=== PATIENT | female | born 1950 | race Caucasian/White ===

== ENCOUNTER → 2017-11-12 12:35 | Outpatient (CLI) | payer BC, SELFPAY ==
--- NOTE | 2017-11-12 12:39 | HPBI_ITS ---
MAMMOGRAPHY - BILATERAL SCREENING REASON FOR EXAM: Female, 67 years old. Routine annual screening examination. PERTINENT HISTORY: Aunt with breast cancer. TECHNIQUE: Digital bilateral breast kacey (3D mammographic acquisition) in the CC and MLO projections. 2-D mediolateral oblique (MLO) and craniocaudad (CC) views of both breasts were obtained. CAD: Full Field Digital Mammography with Computer Added Detection was performed. COMPARISON: Comparison is made with prior study dated September 29, 2016 and August 29, 2015. FINDINGS: Breast Composition: There are scattered areas of fibroglandular density. There are no dominant masses or suspicious calcifications. Stable benign appearing bilateral axillary lymph nodes. Stable 4 mm x 5 mm nodular density in the superior lateral portion of the left breast. This was demonstrated a small cyst on prior ultrasound. No other significant abnormalities are identified. There has been no significant change since the prior study. HPBI/SCREENING MAMM (CAD), BILAT IMPRESSION: Stable bilateral screening mammogram. Yearly follow-up mammogram recommended. (A) ASSESSMENT CATEGORY: BIRADS Category 2: Benign. A letter regarding these results will be sent to the patient by the facility within 30 days. Approximately 10% of breast cancers are not detected by mammography. A normal mammogram should not delay biopsy of a clinically suspicious abnormality. [id number] Electronically Signed: Calvin Khan MD at 15:41 EST Tel [phone], Service support ,
--- NOTE | 2017-11-12 12:39 | HPBD_ITS ---
STUDY: DUAL ENERGY X-RAY ABSORPTIOMETRY / DXA REASON FOR EXAM: Female, 67 years old. The patient is postmenopausal. No loss of height. TECHNIQUE: Bone Mineral Density (BMD) measurements of lumbar spine and bilateral hips were obtained. COMPARISON: Comparison is made with prior study dated September 20, 2013. FINDINGS: Lumbar Spine (L1-L4): g/cm2 (0.950) / T-score (-1.8) / Z-score (-0.2) Findings are suggestive of osteopenia with a moderate fracture risk. Left Femur Total: g/cm2 (0.817) / T-score (-1.5) / Z-score (-0.2) Left Femoral Neck: g/cm2 (0.839) / T-score (-1.4) / Z-score (0.2) Right Femur Total: g/cm2 (0.823) / T-score (-1.5) / Z-score (-0.1) Right Femoral Neck: g/cm2 (0.806) / T-score (-1.7) / Z-score (-0.1) The T-Scores on the most recent prior examination were: Lumbar Spine (L1-L4): There has been worsening of bone density since the previous examination. Left Femur Total: which represents a worsening of 4.2%. Right Femur Total: which represents a worsening of 1.6%. HPBD/Dexa Bone Density Study (HP) IMPRESSION: The patient is considered osteopenic as outlined below according to World Asa Organization (WHO) criteria with a moderate fracture risk. There has been worsening of bone density since the previous examination. Reference Information: The T-score is the number of standard deviations above or below the standard which is normal for young adults at their peak bone mineral density. The World Health Organization (WHO) interprets the T-scores as follows: Above -1 Normal bone density Between -1 and -2.5 Osteopenia Equal to / or below -2.5 Osteoporosis As a practical clinical guideline, osteopenia may be graded as follows: Mild -1 through -1.5 Moderate -1.6 through -2.0 Severe -2.1 through -2.4 The Z-score is the number of standard deviations above or below age-matched controls. A Z-score of less than -1.5 would be considered abnormal. References: 1. NIH Osteoporosis and Related Bone Diseases http://www.osteo.org 2. International Society for Clinical Densitometry http://www.iscd.org 3. National Osteoporosis Foundation http://www.nof.org Electronically Signed: Calvin Khan MD at 14:00 EST Tel [phone], Service support ,
== END ==
PROVIDERS: Family Provider Family Medicine; PCP Family Medicine; Visit Provider Family Medicine
DX: Z12.31 Encounter for screening mammogram for malignant neoplasm of breast (principal); M81.0 Age-related osteoporosis without current pathological fracture
CPT/HCPCS: 77063; 77067; 77080

== ENCOUNTER → 2018-09-20 07:55 | Outpatient (CLI) | payer BC, SELFPAY ==
--- NOTE | 2018-09-20 07:57 | US_ITS ---
STUDY: ULTRASOUND OF THE FEMALE PELVIS - COMPLETE REASON FOR EXAM: Female, 67 years old. Postmenopausal bleeding. LMP: Unknown. TECHNIQUE: Transabdominal and Transvaginal. Despite a distended urinary bladder, detail was very limited on transabdominal imaging, so additional endovaginal scanning was employed. TECHNICAL QUALITY: Adequate. COMPARISON: Endovaginal pelvic sonogram August 26, 2013. FINDINGS: The uterus is anteverted and is in a midline position. The uterus measures 5.6 x 3.8 x 2.8 cm. Normal uterine cervix. The endometrium measures 2.0 mm in thickness, and is minimally fluid distended to an overall AP diameter of 4.7 mm. 8 x 5 x 3 mm hypoechoic area seen in the myometrium just left of the endometrial stripe, etiology and significance uncertain. There is no demonstrated endometrial mass. There is scattered calcifications in the myometrium, but no demonstrated myometrial mass. I.U.D. - The patient does not have an I.U.D. The right ovary is non-visualized. There is no visualized right adnexal mass or complex lesion. There is normal arterial and normal venous vascularity. The left ovary is non-visualized. There is no visualized left adnexal mass or complex lesion. There is normal arterial and normal venous vascularity. There is no fluid in the cul-de-sac. The pre void volume of the bladder was 571 ml. Polycystic ovary disease: No. US/Pelvic (Non ) IMPRESSION: 1. Age-appropriate uterine and endometrial atrophy. No demonstrated fibroid, but a small fluid-filled structure of indeterminate etiology and significance is seen along the left margin of the minimally fluid-filled endometrial cavity. This could reflect a prominent glandular structure or other focal outpouching of the endometrium, unchanged from previous exam. 2. The ovaries are not visualized. Electronically Signed: Del Kasper MD at 19:30 EST , Service support ,
--- NOTE | 2018-09-20 08:13 | US_ITS ---
STUDY: ULTRASOUND OF THE FEMALE PELVIS - COMPLETE REASON FOR EXAM: Female, 67 years old. Postmenopausal bleeding. LMP: Unknown. TECHNIQUE: Transabdominal and Transvaginal. Despite a distended urinary bladder, detail was very limited on transabdominal imaging, so additional endovaginal scanning was employed. TECHNICAL QUALITY: Adequate. COMPARISON: Endovaginal pelvic sonogram August 26, 2013. FINDINGS: The uterus is anteverted and is in a midline position. The uterus measures 5.6 x 3.8 x 2.8 cm. Normal uterine cervix. The endometrium measures 2.0 mm in thickness, and is minimally fluid distended to an overall AP diameter of 4.7 mm. 8 x 5 x 3 mm hypoechoic area seen in the myometrium just left of the endometrial stripe, etiology and significance uncertain. There is no demonstrated endometrial mass. There is scattered calcifications in the myometrium, but no demonstrated myometrial mass. I.U.D. - The patient does not have an I.U.D. The right ovary is non-visualized. There is no visualized right adnexal mass or complex lesion. There is normal arterial and normal venous vascularity. The left ovary is non-visualized. There is no visualized left adnexal mass or complex lesion. There is normal arterial and normal venous vascularity. There is no fluid in the cul-de-sac. The pre void volume of the bladder was 571 ml. Polycystic ovary disease: No. US/Transvaginal Non- IMPRESSION: 1. Age-appropriate uterine and endometrial atrophy. No demonstrated fibroid, but a small fluid-filled structure of indeterminate etiology and significance is seen along the left margin of the minimally fluid-filled endometrial cavity. This could reflect a prominent glandular structure or other focal outpouching of the endometrium, unchanged from previous exam. 2. The ovaries are not visualized. Electronically Signed: Del Kasper MD at 19:30 EST , Service support ,
--- OUTSIDE RECORDS SUMMARY | 2018-11-13 07:32 | XMS RPT_ITS ---
:1950 Author Organization [facility] Care Team Providers Name Role Phone Lena Vogta Attending Unavailable Malys, Sandi Primary Care Unavailable Malys, Sandi Attending Unavailable Malys, Sandi Referring Unavailable Malys, Sandi Primary Care Unavailable Rox Novak Attending Unavailable Rox Novak Referring Unavailable Malys, Sandi Primary Care Unavailable PROBLEMS PROBLEMS DATE TYPE CONDITION / CODE ATTENDING STATUS SOURCE 10/08/2017 Unknown R53.83 - Other Malys, Sandi Active [place] fatigue / Community R53.83(ICD-10) Hospital Repository 10/08/2017 Unknown I10 - Essential Malys, Sandi Active [facility] (primary) Community hypertension / Hospital I10(ICD-10) Repository 10/08/2017 Unknown E78.5 - Malys, Sandi Active [facility] Hyperlipidemia, Community unspecified / Hospital E78.5(ICD-10) Repository 10/08/2017 Unknown Z00.00 - Encounter Sandi Vogt Active Sara for general adult [facility] examination Repository without abnormal findings / Z00.00(ICD-10) PROCEDURES PROCEDURES No Procedure Records FoundRESULTS RESULTS TRANSVAGINAL Observed: 09/20/2018 Status: F Source: [place] NON- 8:[address] [facility] REPOSITORY [facility] Imaging Services [address] [place] [address] Transvaginal Non- MR#: [id number] Acct: [id number] Name: ROLY ARCEO Rep #: [id number] : 1950 F 67 From: Lan Kasper MD PCP: Sandi Vogt DO Status: REG CLI Study: Transvaginal Non- Date of Exam: 09/20/18 Exam# [id number] Ordering Dr: Rox Novak MD STUDY: ULTRASOUND OF THE FEMALE PELVIS - COMPLETE REASON FOR EXAM: Female, 67 years old. Postmenopausal bleeding. LMP: Unknown. TECHNIQUE: Transabdominal and Transvaginal. Despite a distended urinary bladder, detail was very limited on transabdominal imaging, so additional endovaginal scanning was employed. TECHNICAL QUALITY: Adequate. COMPARISON: Endovaginal pelvic sonogram August 26, 2013. FINDINGS: The uterus is anteverted and is in a midline position. The uterus measures 5.6 x 3.8 x 2.8 cm. Normal uterine cervix. The endometrium measures 2.0 mm in thickness, and is minimally fluid distended to an overall AP diameter of 4.7 mm. 8 x 5 x 3 mm hypoechoic area seen in the myometrium just left of the endometrial stripe, etiology and significance uncertain. There is no demonstrated endometrial mass. There is scattered calcifications in the myometrium, but no demonstrated myometrial mass. I.U.D. - The patient does not have an I.U.D. The right ovary is non-visualized. There is no visualized right adnexal mass or complex lesion. There is normal arterial and normal venous vascularity. The left ovary is non-visualized. There is no visualized left adnexal mass or complex lesion. There is normal arterial and normal venous vascularity. There is no fluid in the cul-de-sac. The pre void volume of the bladder was 571 ml. Polycystic ovary disease: No. US/Transvaginal Non- IMPRESSION: 1. Age-appropriate uterine and endometrial atrophy. No demonstrated fibroid, but a small fluid-filled structure of indeterminate etiology and significance is seen along the left margin of the minimally fluid-filled endometrial cavity. This could reflect a prominent glandular structure or other focal outpouching of the endometrium, unchanged from previous exam. 2. The ovaries are not visualized. Electronically Signed: Del Kasper MD at 19:30 EST , Service support , CC: Rox Novak MD; Sandi Vogt DO Customer Experience Associate: Signed PELVIC (NON ) Observed: 09/20/2018 Status: F Source: [place] 7:58 AM [facility] REPOSITORY [facility] Imaging Services [address] [place] [address] Pelvic (Non ) MR#: [id number] Acct: [id number] Name: ROLY ARCEO Rep #: [id number] : 1950 F 67 From: Lan Kasper MD PCP: Sandi Vogt DO Status: REG CLI Study: Pelvic (Non ) Date of Exam: 09/20/18 Exam# [id number] Ordering Dr: Rox Novak MD STUDY: ULTRASOUND OF THE FEMALE PELVIS - COMPLETE REASON FOR EXAM: Female, 67 years old. Postmenopausal bleeding. LMP: Unknown. TECHNIQUE: Transabdominal and Transvaginal. Despite a distended urinary bladder, detail was very limited on transabdominal imaging, so additional endovaginal scanning was employed. TECHNICAL QUALITY: Adequate. COMPARISON: Endovaginal pelvic sonogram August 26, 2013. FINDINGS: The uterus is anteverted and is in a midline position. The uterus measures 5.6 x 3.8 x 2.8 cm. Normal uterine cervix. The endometrium measures 2.0 mm in thickness, and is minimally fluid distended to an overall AP diameter of 4.7 mm. 8 x 5 x 3 mm hypoechoic area seen in the myometrium just left of the endometrial stripe, etiology and significance uncertain. There is no demonstrated endometrial mass. There is scattered calcifications in the myometrium, but no demonstrated myometrial mass. I.U.D. - The patient does not have an I.U.D. The right ovary is non-visualized. There is no visualized right adnexal mass or complex lesion. There is normal arterial and normal venous vascularity. The left ovary is non-visualized. There is no visualized left adnexal mass or complex lesion. There is normal arterial and normal venous vascularity. There is no fluid in the cul-de-sac. The pre void volume of the bladder was 571 ml. Polycystic ovary disease: No. US/Pelvic (Non ) IMPRESSION: 1. Age-appropriate uterine and endometrial atrophy. No demonstrated fibroid, but a small fluid-filled structure of indeterminate etiology and significance is seen along the left margin of the minimally fluid-filled endometrial cavity. This could reflect a prominent glandular structure or other focal outpouching of the endometrium, unchanged from previous exam. 2. The ovaries are not visualized. Electronically Signed: Del Kasper MD at 19:30 EST , Service support , CC: Rox Novak MD; Sandi Vogt DO Customer Experience Associate: Signed DEXA BONE DENSITY Observed: 11/12/2017 Status: F Source: [place] STUDY () 12:39 PM [facility] REPOSITORY [facility] Imaging Services [address] [place] [address] Dexa Bone Density Study () MR#: [id number] Acct: [id number] Name: ROLY ARCEO Rep #: [id number] : 1950 F 67 From: Calvin Khan MD PCP: Sandi Vogt DO Status: REG CLI Study: Dexa Bone Density Study () Date of Exam: 11/12/17 Exam# [id number] Ordering Dr: Sandi Vogt DO STUDY: DUAL ENERGY X-RAY ABSORPTIOMETRY / DXA REASON FOR EXAM: Female, 67 years old. The patient is postmenopausal. No loss of height. TECHNIQUE: Bone Mineral Density (BMD) measurements of lumbar spine and bilateral hips were obtained. COMPARISON: Comparison is made with prior study dated September 20, 2013. FINDINGS: Lumbar Spine (L1-L4): g/cm2 (0.950) / T-score (-1.8) / Z-score (-0.2) Findings are suggestive of osteopenia with a moderate fracture risk. Left Femur Total: g/cm2 (0.817) / T-score (-1.5) / Z- score (-0.2) Left Femoral Neck: g/cm2 (0.839) / T-score (-1.4) / Z- score (0.2) Right Femur Total: g/cm2 (0.823) / T-score (-1.5) / Z- score (-0.1) Right Femoral Neck: g/cm2 (0.806) / T-score (-1.7) / Z-score (-0.1) The T-Scores on the most recent prior examination were: Lumbar Spine (L1-L4): There has been worsening of bone density since the previous examination. Left Femur Total: which represents a worsening of 4.2%. Right Femur Total: which represents a worsening of 1.6%. HPBD/Dexa Bone Density Study () IMPRESSION: The patient is considered osteopenic as outlined below according to World Asa Organization (WHO) criteria with a moderate fracture risk. There has been worsening of bone density since the previous examination. Reference Information: The T-score is the number of standard deviations above or below the standard which is normal for young adults at their peak bone mineral density. The World Health Organization (WHO) interprets the T-scores as follows: Above -1 Normal bone density Between -1 and -2.5 Osteopenia Equal to / or below -2.5 Osteoporosis As a practical clinical guideline, osteopenia may be graded as follows: Mild -1 through -1.5 Moderate -1.6 through -2.0 Severe -2.1 through -2.4 The Z-score is the number of standard deviations above or below age-matched controls. A Z-score of less than -1.5 would be considered abnormal. References: 1. NIH Osteoporosis and Related Bone Diseases http://www.osteo.org 2. International Society for Clinical Densitometry http://www.iscd.org 3. National Osteoporosis Foundation http://www.nof.org Electronically Signed: Calvin Khan MD at 14:00 EST Tel [phone], Service support , CC: Sandi Vogt DO Customer Experience Associate: Signed SCREENING MAMM (CAD), Observed: 11/12/2017 Status: F Source: [facility] 12:39 PM [facility] REPOSITORY [facility] Imaging Services [address] [place] [address] SCREENING MAMM (CAD), BILAT MR#: [id number] Acct: [id number] Name: ROLY ARCEO Rep #: [id number] : 1950 F 67 From: Calvin Khan MD PCP: Sandi Vogt DO Status: [facility] Study: SCREENING MAMM (CAD), BILAT Date of Exam: 11/12/17 Exam# [id number] Ordering Dr: Sandi Vogt DO MAMMOGRAPHY - BILATERAL SCREENING REASON FOR EXAM: Female, 67 years old. Routine annual screening examination. PERTINENT HISTORY: Aunt with breast cancer. TECHNIQUE: Digital bilateral breast kacey (3D mammographic acquisition) in the CC and MLO projections. 2-D mediolateral oblique (MLO) and craniocaudad (CC) views of both breasts were obtained. CAD: Full Field Digital Mammography with Computer Added Detection was performed. COMPARISON: Comparison is made with prior study dated September 29, 2016 and August 29, 2015. FINDINGS: Breast Composition: There are scattered areas of fibroglandular density. There are no dominant masses or suspicious calcifications. Stable benign appearing bilateral axillary lymph nodes. Stable 4 mm x 5 mm nodular density in the superior lateral portion of the left breast. This was demonstrated a small cyst on prior ultrasound. No other significant abnormalities are identified. There has been no significant change since the prior study. HPBI/SCREENING MAMM (CAD), BILAT IMPRESSION: Stable bilateral screening mammogram. Yearly follow-up mammogram recommended. (A) ASSESSMENT CATEGORY: BIRADS Category 2: Benign. A letter regarding these results will be sent to the patient by the facility within 30 days. Approximately 10% of breast cancers are not detected by mammography. A normal mammogram should not delay biopsy of a clinically suspicious abnormality. [id number] Electronically Signed: Calvin Khan MD at 15:41 EST Tel [phone], Service support , CC: Sandi Vogt DO Customer Experience Associate: Signed CBC W/DIFF, AUTOMATED Collected: 10/08/2017 Status: F Source: [place] 9:54 AM [facility] REPOSITORY TYPE CODE TESTS RESULT OUT OF RANGE REFERENCE UNITS LAB L100.1000 4.4-11.0 K/mm3 Normal WBC 5.7 LAB L100.1200 4.2-5.4 M/mm3 Normal RBC 4.29 LAB L100.1300 12.0-15.0 g/dl Normal HGB 12.9 LAB L100.1400 37-47 % Normal HCT 38.7 LAB L100.1500 81-99 fL Normal MCV 90.2 LAB L100.1600 27.0-32.0 pg Normal MCH 30.1 LAB L100.1700 32-36 g/gl Normal MCHC 33.3 LAB L100.1810 11.6-14.6 % Normal RDW CV 13.1 LAB L100.1820 35.1-43.9 fl Normal RDW SD 42.4 LAB L100.1900 150-450 K/mm3 Normal PLT 353 LAB L100.2000 6.2-12.0 fl Normal MPV 10.4 LAB L100.2100 47-70 % Normal NEUT% 65.4 LAB L100.2200 19-41 % Normal LY% 25.9 LAB L100.2300 0-10 % Normal MONO% 6.1 LAB L100.2400 0-5 % Normal EO% 2.3 LAB L100.2500 0-1 % Normal BASO% 0.3 LAB L100.2550 0.0-0.9 % Normal IM GRAN % 0.000 Result Comment: IG% - Immature Granulocytes (promyelocytes, myelocytes and metamyelocytes) > 1% indicates that a LEFT SHIFT is Present. LAB L100.2620 2.0-7.7 X10 3/uL Normal Absolute Neut 3.7 LAB L100.2720 0.83-4.51 X10 3/ul Normal Absolute Lymph 1.48 Performed By: #### L100.0100 #### [facility] [address] [facility]. [place], [place], [address] COMPREHENSIVE METABOLIC Collected: 10/08/2017 Status: F Source: [facility] 9:54 AM [facility] REPOSITORY TYPE CODE TESTS RESULT OUT OF RANGE REFERENCE UNITS LAB L501.0100 70-110 mg/dL Normal GLU 83 LAB L501.1000 7-18 mg/dL Normal BUN 15 LAB L501.1100 0.55-1.02 mg/dL Normal 0.69 CREAT,SERUM Result Comment: The validity of the calculated GFR AND GFRAA in patients over 70 years has not been determined. Clinical correlation is essential. LAB L501.1110 >60 mL/min Normal EST GFR 90 Result Comment: Non- GFR Calc LAB L501.1115 >60 mL/min Normal EST GFR - AA 109 Result Comment: GFR Calc LAB L501.1300 10-20 RATIO High BUN/CRE 21.8 LAB L501.1500 6.4-8.2 g/dL T Normal PROT 7.6 LAB L501.1800 3.4-5.0 g/dL Normal ALB 3.5 Result Comment: Please note revised Albumin AND Globulin reference range effective 2017. LAB L501.1950 2.2-4.2 g/dL Normal GLOB 4.1 LAB L501.2000 0.9-2.4 RATIO Normal A/G 0.9 LAB L501.2200 8.5-10.1 mg/dL Normal CA 8.6 LAB L501.4100 15-37 U/L Normal AST 30 LAB L501.4305 45-117 U/L Normal ALK P 91 LAB L501.4405 12-78 U/L Normal ALT 35 LAB L501.4600 0.20-1.00 mg/dL Normal T BILI 0.50 LAB L501.5300 136-145 mmol/L Normal NA 141 LAB L501.5600 3.5-5.1 mmol/L Normal K 3.8 LAB L501.5900 98-107 mmol/L Normal CL 105 LAB L501.6100 21.0-32.0 mmol/L Normal CO2 30.0 LAB L501.6200 5-15 Normal GAP 6 Performed By: #### L500.4050, L500.4100 #### [facility] [address] [place], [place], [address] LIPID PROFILE Collected: 10/08/2017 Status: F Source: [place] 9:54 AM [facility] REPOSITORY TYPE CODE TESTS RESULT OUT OF RANGE REFERENCE UNITS LAB L501.4900 200 mg/dL High CHOL 220 Result Comment: <200 mg/dL Desirable 200-240 mg/dL Borderline >240 mg/dL High Risk LAB L501.5000 mg/dL Normal TRIG 99 Result Comment: The drugs N-Acetylcysteine and Metamizole may falsely depress this assay. Serum Triglycerides Reference Interval Normal <150 mg/dL Borderline high 150 - 199 mg/dL High 200 - 499 mg/dL Very High > or = 500 mg/dL LAB L501.6400 mg/dL Normal HDL 58 Result Comment: The drugs N-Acetylcysteine and Metamizole may falsely depress this assay. Reference Range HDL <40 mg/dL Low HDL Cholesterol HDL >or= 60 mg/dL High HDL Cholesterol LAB L501.6500 0-130 mg/dL High LDL 142 LAB L501.6600 5-40 mg/dL Normal VLDL 20 Performed By: #### L500.4050, L500.4100 #### [facility] [address] [place], [address] ALLERGIES ALLERGIES DATE TYPE / CODE NAME / CODE REACTION SEVERITY SOURCE 10/06/2013 Drug Penicillins/ Unknown Unknown [facility] Allergy/4160 [id number]( Hospital 54777(SNOMED XNORM) Repository CT) 10/06/2013 Drug codeine/F006 Other Unknown [facility] Allergy/4160 082556(RXNOR Hospital 80908(SNOMED M) Repository CT) ENCOUNTERS ENCOUNTERS ADMIT/DISCHARGE ACCOUNT ADMITTING ENCOUNTER LOCATION SOURCE NUMBER CLASS 09/20/2018 [id number] [facility] [place] [facility] 8 [facility] ing:OPUS Repository 11/12/2017 [id number] [facility]ulatory [place] 0 [facility] ing:BD Repository 10/08/2017 [id number] Ambulatory [place] 1 [facility] ing:BFHLAB Repository PAYERS PAYERS ENCOUNTER GUARANTOR PAYER SUBSCRIBER SOURCE 09/20/2018 DARYA [place] [id number] Insurance:ANTHEMPolic BEEGLEDOB: [facility] y Number: [id number] [id number] Repository 186[address]Xgc: [address] ve Date:[id number] [phone] () [address], [place] [address]AG: 09/20/2018 Secondary NOT GIVENUNK [place] Insurance:SELF PAY [facility] Number: Effective Repository Date:2018-09-13 11/12/2017 DARYA HUMMELA S Sara [id number] Insurance:ANTHEMPolic BEEGLEDOB: [facility] [id number] [id number] Repository [address]Yaq: ve Date:[id number] [phone] [address]AQWBGU[address]IA FISHER -4 (HP) [id number]: 11/12/2017 Secondary NOT GIVENUNK [place] Insurance:SELF PAY [facility] Number: Effective Repository Date:2017-10-08 10/08/2017 Darya E Primary ROLY Kimball Sara [id number] Insurance:ANTHEMPolic BEEGLEDOB: [facility] [place]: [id number] [id number] Repository [address]Jia: [phone] Date:[id number] [phone] () [address]JIPWSQUFOUZIA FISHER [address]GG: 10/08/2017 Secondary NOT GIVENUNK Sara Insurance:SELF PAY [facility] Number: Effective Repository Date:2017-10-08
== END ==
PROVIDERS: Family Provider Family Medicine; PCP Family Medicine; Referring Provider Family Medicine; Visit Provider Family Medicine
DX: N95.0 Postmenopausal bleeding (principal)
CPT/HCPCS: 76830; 76856

== ENCOUNTER → 2018-11-18 10:05 | Outpatient (CLI) | payer BC, SELFPAY ==
[2018-11-18 11:59] LABS: Absolute Lymphocyte Count 2.05 X10^3/ul (0.83-4.51); Absolute Neutrophil Count 5.4 X10^3/uL (2.0-7.7); Basophil# 0.03 X10^3/uL; Basophil% 0.4 % (0-1); Eosinophils% 1.2 % (0-5); Hematocrit 41.9 % (37-47); Hemoglobin 13.7 g/dl (12.0-15.0); Lymphocyte # 2.05 X10^3/ul (4.0); Lymphocyte % 25.4 % (19-41); Mean Corp Hgb Conc 32.7 g/gl (32-36); Mean Corpuscular Hgb 29.7 pg (27.0-32.0); Mean Corpuscular Volume 90.9 fL (81-99); Mean Platelet Vol. 10.2 fl (6.2-12.0); Monocyte# 0.47 X10^3/uL; Monocyte% 5.8 % (0-10); Neutrophil # 5.39 X10^3/uL (2.7-7.7); Platelet Count 392 K/mm3 (150-450); RBC Distribution Width CV 13.2 % (11.6-14.6); RBC Distribution Width SD 43.7 fl (35.1-43.9); Red Blood Count 4.61 M/mm3 (4.2-5.4); White Blood Count 8.1 K/mm3 (4.4-11.0)
[2018-11-18 12:06] LABS: POSITIVE COUNT NO; POSITIVE DIFFERENTIAL NO; POSITIVE MORPHOLOGY NO
[2018-11-18 12:25] LABS: ALB/GLOB Ratio 0.8 RATIO (0.9-2.4); AST(SGOT) 26 U/L (15-37); Alanine Aminotransfer ALT/SGPT 32 U/L (13-56); Albumin, Serum 3.8 g/dL (3.2-5.0); Alkaline Phosphatase 103 U/L (45-117); Anion Gap 10 (5-15); BUN 17 mg/dL (7-18); BUN/Creat Ratio 20.9 RATIO (10-20); Calcium,Total 9.3 mg/dL (8.5-10.1); Chloride 103 mmol/L (98-107); Cholesterol 216 mg/dL (200); Creatinine, Serum 0.81 mg/dL (0.55-1.02); EST Glomerular Filtration Rate 74 mL/min (>60); Est Glom Filt Rate - Afr Amer 90 mL/min (>60); Globulin 4.8 g/dL (2.2-4.2); Glucose 86 mg/dL (74-106); High Density Lipoprotein 60 mg/dL; Potassium 3.8 mmol/L (3.5-5.1); Protein, Total 8.6 g/dL (6.4-8.2); Sodium Level 141 mmol/L (136-145); T4 Free Direct 1.22 ng/dL (0.76-1.46); Thyroid Stim Hormone (TSH) 2.16 uIU/mL (0.358-3.74); Triglycerides 110 mg/dL; Very Low Density Lipoprotein 22 mg/dL (5-40)
== END ==
PROVIDERS: Family Provider Family Medicine; PCP Family Medicine; Visit Provider Family Medicine
DX: Z13.220 Encounter for screening for lipoid disorders (principal); R53.83 Other fatigue; K64.8 Other hemorrhoids
CPT/HCPCS: 36415; 80053; 80061; 84439; 84443; 85025

== ENCOUNTER → 2019-01-07 13:23 | Outpatient (CLI) | payer BC, SELFPAY ==
--- NOTE | 2019-01-07 13:27 | BI_ITS ---
MAMMOGRAPHY - BILATERAL SCREENING 3-D BETTY SYNTHESIS REASON FOR EXAM: Female, 68 years old. Bilateral Screening 3-D tomosynthesis PERTINENT HISTORY: No significant family history. TECHNIQUE: 2-D mammograms and 3-D Betty synthesis of the breast (s) were performed. CAD was performed. COMPARISON: November 12, 2017, September 29, 2016 FINDINGS: The breast composition is almost entirely fat. Scattered benign calcifications are stable. There are no abnormal-appearing lymph nodes in the axillary, unchanged. No dense spiculated masses or suspicious microcalcifications are identified. No architectural distortion is identified. There is no skin thickening or retraction. There has been no significant change since the prior study. BI/SCREENING MAMM (CAD), BILAT IMPRESSION: No mammographic signs of malignancy. Routine yearly mammograms recommended. ASSESSMENT CATEGORY: BIRADS Category 2: Benign. A letter regarding these results will be sent to the patient by the facility within 30 days. FOLLOW UP RECOMMENDATION: Yearly follow up mammogram recommended. (A) Approximately 10% of breast cancers are not detected by mammography. A normal mammogram should not delay biopsy of a clinically suspicious abnormality. Electronically Signed: Alexander Mcfarland MD at 17:40 EDT , Service support ,
== END ==
PROVIDERS: Family Provider Family Medicine; PCP Family Medicine; Visit Provider Family Medicine
DX: Z12.31 Encounter for screening mammogram for malignant neoplasm of breast (principal)
CPT/HCPCS: 77063; 77067

== ENCOUNTER 2019-01-21 14:00 | Outpatient (RCR) | payer BC, SELFPAY ==
--- NOTE | 2019-01-12 15:09 | HP.PTEVAL_ITS ---
Patient's Visit Information ROLY ARCEO is a 68 year old F referred to Physical Therapy by Sandi Vgot DO with a diagnosis of LBP with L LE radiculopathy. Date of Evaluation: 01/12/19 Physical Therapist: Everton Fuentes, PT, ATC - Visit Plan Frequency: 1x/Week Duration: 2 Weeks Plan: Issue and review HEP of SKTC/DKTC, core stab ex's, nustep, and HEP - Subjective Findings: Pt reports she has had LBP and L LE radiculopathy for 3 months. 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 Pt reports her L LE radiculopathy extends down the posterior aspect of her L leg and wraps around to her knee. PMHx of this same pain one year ago. Pt reports occasional sleep difficulty secondary to LBP. Pt reports she has had xrays at the chiropractor which had no positive findings. 4/10 at rest, 10/10 at worst. Pt reports lifting causes her to have a lot of pain. Nothing helps to take her pain away. - Pain LBP Pain Intensity (Out of 10): 4 Pain Intensity Range: 10 - Objective Neuro: B LE sensation is WNL to light touch. B patellar reflex= 1/3. MMT: B LE's 5/5 throughout. ROM: Minor limitation with L/S ext. All other ranges are WNL. Repeated movements: RFIS 10x3 NE. DEVIN 10x3 peripheralises pain. - Goals Goal 1:: I with HEP Goal Time Frame: 1 Week - Rehabilitation Potential Physical Therapy Diagnosis: LBP, L LE radiculopathy, and decreased L/S ROM secondary to deg disc disease Rehabilitation Potential: Good - Anticipated Interventions Patient/Client Instruction: Educate patient on: Condition, Plan of Care For the Purpose of:: To improve self management Therapeutic Exercise to Include: Strength training, Body mechanics, Postural training, Active ROM, Dynamic Lumbar Stabilization For the Purpose of:: To decrease pain, To increase ROM, To improve muscle performance and motor function Thermo therapy (hot pack): Yes For the Purpose of:: To decrease pain Thank you for the opportunity to evaluate your patient. For Medicare and Medicare HMO plans, please review the plan of care and approve it. It will need to be FAXED BACK to us at [phone] for Medicare purposes. For Medicare only, by signing this I certify the plan of care. Please let me know if there are questions or concerns regarding this plan of care. Physician Signature: Date:
--- NOTE | 2019-01-21 14:41 | HP.PTDCSUM ---
HP - PT D/C Summary It has been my pleasure to treat ROLY ARCEO under orders from Sandi Vogt DO, for the diagnosis of LBP with L LE radiculopathy for a total of 2 visit(s). Discharge Date: Please see the following information for a summary of their discharge status. - Subjective Subjective: No LBP this date - Pain LBP Pain Intensity (Out of 10): 0 - Overall Improvement % Improvement: 100 - Objective Objective/Function: Pt I with HEP - Goals Goal 1:: I with HEP Goal Progress: Goal Met - Plan Plan: Issue and review HEP of SKTC/DKTC, core stab ex's, nustep, and HEP - D/C Information If there are questions or concerns regarding this patient's physical therapy, please feel free to call me at [phone]. Thank you for the referral of this patient. Sincerely, Everton Fuentes, PT, ATC
== END 2019-01-21 19:00 | disposition home or self-care (01) ==
LOC: PT 14:00
PROVIDERS: Family Provider Family Medicine; PCP Family Medicine; Referring Provider Family Medicine; Visit Provider Family Medicine
DX: M54.16 Radiculopathy, lumbar region (principal)
CPT/HCPCS: 97161; 97530

== ENCOUNTER → 2019-08-10 06:45 | Outpatient (CLI) | payer BC, SELFPAY ==
--- NOTE | 2019-08-10 06:48 | CT_ITS ---
STUDY: CT BRAIN WITHOUT CONTRAST REASON FOR EXAM: Female, 68 years old. Chronic headaches. History of migraines. Dizziness and neck pain. RADIATION DOSAGE (If Supplied By Facility): CTDIvol = ( 44.99 ) mGy, DLP = ( 728.62 ) mGycm TECHNIQUE: Transaxial CT imaging of the brain was performed without administration of intravenous contrast material. Individualized dose optimization techniques were used for this CT. COMPARISON: No relevant priors. FINDINGS: Normal soft tissue structures. Normal calvarium. Normal size ventricles and extra-axial spaces for the patient's age. Normal white matter tracts of the cerebral hemispheres. Normal basal ganglia and thalami. Normal brainstem. Normal cerebellum. There is no intracranial hemorrhage. There are no findings of an acute ischemic infarction. Normal visualized paranasal sinuses. CT/Brain/Head without Contrast IMPRESSION: Normal unenhanced CT scan of the brain. Electronically Signed: Calvin Khan, at 10:55 EDT , Service support ,
--- NOTE | 2019-08-10 06:49 | CT_ITS ---
STUDY: CT CERVICAL SPINE WITHOUT CONTRAST REASON FOR EXAM: Female, 68 years old. Chronic headaches and neck pain. RADIATION DOSAGE (If Supplied By Facility): CTDIvol = ( 16.02 ) mGy, DLP = ( 285.02 ) mGycm TECHNIQUE: High resolution transaxial imaging was performed without contrast material. Sagittal and coronal images were reconstructed. Individualized dose optimization techniques were used for this CT. COMPARISON: None FINDINGS: Normal craniovertebral junction. Normal anterior atlantoaxial articulation. Normal odontoid process. Normal cervical lordosis. Normal vertebral bodies and posterior osseous elements. C2-3: Normal endplates. Normal disc height and morphology. Normal central canal and intervertebral neuroforamina. C3-4: Normal endplates. Normal disc height and morphology. Normal central canal and intervertebral neuroforamina. C4-5: Marked degree of disc space narrowing. Spondylosis. Uncovertebral arthrosis. Moderate bilateral neural foraminal stenosis worse on the left side. C5-6: Marked degree of disc space narrowing. Spondylosis. No significant stenosis seen. C6-7: Moderate degree of disc space narrowing and spondylosis. No significant stenosis is seen. C7-T1: Normal endplates. Normal disc height and morphology. Normal central canal and intervertebral neuroforamina. Normal visualized soft tissue structures. CT/Spine Cervical without Contras IMPRESSION: Multilevel degenerative changes, as described above. Electronically Signed: Calvin Khan, at 11:07 EDT , Service support ,
== END ==
PROVIDERS: Family Provider Family Medicine; PCP Family Medicine; Referring Provider Family Medicine; Visit Provider Family Medicine
DX: M54.2 Cervicalgia (principal); R51 Headache; R42 Dizziness and giddiness; R29.6 Repeated falls
CPT/HCPCS: 70450; 72125

== ENCOUNTER → 2019-11-23 10:30 | Outpatient (CLI) | payer BC, SELFPAY ==
[2019-11-23 12:41] LABS: Absolute Lymphocyte Count 1.42 X10^3/uL (0.83-4.51); Basophil# 0.03 X10^3/uL; Basophil% 0.6 % (0-1); Hematocrit 37.2 % (37-47); Hemoglobin 12.2 g/dL (12.0-15.0); Lymphocyte # 1.42 X10^3/ul (4.0); Lymphocyte % 28.7 % (19-41); Mean Corp Hgb Conc 32.8 g/dL (32-36); Mean Corpuscular Hgb 29.4 pg (27.0-32.0); Mean Corpuscular Volume 89.6 fL (81-99); Mean Platelet Vol. 10.2 fl (6.2-12.0); Monocyte# 0.36 X10^3/uL; Monocyte% 7.3 % (0-10); NRBC Flagged by Analyzer 0 % (0-5); Neutrophil # 3.02 X10^3/uL (2.7-7.7); Neutrophil % 61.2 % (47-70); Platelet Count 359 K/mm3 (150-450); RBC Distribution Width CV 13.4 % (11.6-14.6); RBC Distribution Width SD 44.2 fl (35.1-43.9); Red Blood Count 4.15 M/mm3 (4.2-5.4); White Blood Count 4.9 K/mm3 (4.4-11.0)
[2019-11-23 12:56] LABS: ALB/GLOB Ratio 0.8 RATIO (0.9-2.4); AST(SGOT) 24 U/L (15-37); Alanine Aminotransfer ALT/SGPT 35 U/L (12-78); Albumin, Serum 3.5 g/dL (3.4-5.0); Alkaline Phosphatase 82 U/L (50-136); Anion Gap 3 (5-15); BUN 12 mg/dL (7-18); BUN/Creat Ratio 13.4 RATIO (10-20); Chloride 106 mmol/L (98-107); Cholesterol 211 mg/dL (200); EST Glomerular Filtration Rate 66 mL/min (>60); Est Glom Filt Rate - Afr Amer 80 mL/min (>60); Globulin 4.5 g/dL (2.3-3.5); Glucose 93 mg/dL (70-110); High Density Lipoprotein 56 mg/dL; Sodium Level 139 mmol/L (136-145); Triglycerides 96 mg/dL; Very Low Density Lipoprotein 19 mg/dL (5-40)
[2019-11-23 13:21] LABS: Vitamin B12 824 pg/mL (211-911)
== END ==
PROVIDERS: PCP Family Medicine; Visit Provider Family Medicine
DX: Z51.81 Encounter for therapeutic drug level monitoring (principal); E78.5 Hyperlipidemia, unspecified; E53.8 Deficiency of other specified B group vitamins
CPT/HCPCS: 36415; 80053; 80061; 82607; 85025

== ENCOUNTER → 2020-11-28 09:10 | Outpatient (CLI) | payer OTHER, SELFPAY ==
[2020-11-28 12:43] LABS: Absolute Neutrophil Count 3.2 X10^3/uL (2.0-7.7); Basophil# 0.04 X10^3/uL; Basophil% 0.8 % (0-1); Eosinophils% 1.9 % (0-5); Hematocrit 39.6 % (37-47); Hemoglobin 12.6 g/dL (12.0-15.0); Lymphocyte % 30.4 % (19-41); Mean Corp Hgb Conc 31.8 g/dL (32-36); Mean Corpuscular Hgb 28.4 pg (27.0-32.0); Mean Corpuscular Volume 89.4 fL (81-99); Mean Platelet Vol. 10.3 fl (6.2-12.0); Monocyte# 0.33 X10^3/uL; Monocyte% 6.3 % (0-10); NRBC Flagged by Analyzer 0 % (0-5); Neutrophil # 3.19 X10^3/uL (2.7-7.7); Neutrophil % 60.4 % (47-70); Platelet Count 413 K/mm3 (150-450); RBC Distribution Width CV 13.2 % (11.6-14.6); RBC Distribution Width SD 43.5 fl (35.1-43.9); Red Blood Count 4.43 M/mm3 (4.2-5.4); White Blood Count 5.3 K/mm3 (4.4-11.0)
[2020-11-28 13:04] LABS: ALB/GLOB Ratio 0.8 RATIO (0.9-2.4); AST(SGOT) 24 U/L (15-37); Alanine Aminotransfer ALT/SGPT 28 U/L (13-56); Albumin, Serum 3.5 g/dL (3.2-5.0); Alkaline Phosphatase 95 U/L (45-117); Anion Gap 4 (5-15); BUN 17 mg/dL (7-18); BUN/Creat Ratio 20.1 RATIO (10-20); Calcium,Total 9.1 mg/dL (8.5-10.1); Chloride 104 mmol/L (98-107); Cholesterol 228 mg/dL (200); Creatinine, Serum 0.85 mg/dL (0.55-1.02); EST Glomerular Filtration Rate 70 mL/min (>60); Est Glom Filt Rate - Afr Amer 85 mL/min (>60); Globulin 4.4 g/dL (2.2-4.2); Glucose 89 mg/dL (74-106); High Density Lipoprotein 55 mg/dL; Potassium 3.9 mmol/L (3.5-5.1); Protein, Total 7.9 g/dL (6.4-8.2); Sodium Level 137 mmol/L (136-145); Triglycerides 138 mg/dL; Very Low Density Lipoprotein 28 mg/dL (5-40)
== END ==
PROVIDERS: PCP Family Medicine; Visit Provider Family Medicine
DX: Z51.81 Encounter for therapeutic drug level monitoring (principal); E78.5 Hyperlipidemia, unspecified
CPT/HCPCS: 36415; 80053; 80061; 85025

== ENCOUNTER → 2020-12-25 07:43 | Outpatient (CLI) | payer OTHER, SELFPAY ==
--- NOTE | 2020-12-25 07:46 | BI_ITS ---
MAMMOGRAPHY - BILATERAL SCREENING REASON FOR EXAM: Female, 70 years old. Routine annual screening examination. PERTINENT HISTORY: HX MAT GRT AUNT AGE ? NO SX RT MOLE MARKED TECHNIQUE: Digital bilateral breast betty (3D mammographic acquisition) in the CC and MLO projections. 2-D mediolateral oblique (MLO) and craniocaudad (CC) views of both breasts were obtained. CAD: Full Field Digital Mammography with Computer Added Detection was performed. COMPARISON: 01/07/2019 FINDINGS: Breast Composition: The breasts are almost entirely fatty. There are no dominant masses or suspicious calcifications. No other significant abnormalities are identified. BI/SCRN MAMM (CAD)W/BETTY BILAT IMPRESSION: Stable bilateral screening mammogram. Yearly follow-up mammogram recommended. (A) ASSESSMENT CATEGORY: BIRADS Category 2: Benign. A letter regarding these results will be sent to the patient by the facility within 30 days. Approximately 10% of breast cancers are not detected by mammography. A normal mammogram should not delay biopsy of a clinically suspicious abnormality. [id number] Electronically Signed: Nichol Smiley MD at 16:49 EST Tel , Service support ,
== END ==
PROVIDERS: PCP Family Medicine; Referring Provider Family Medicine; Visit Provider Family Medicine
DX: Z12.31 Encounter for screening mammogram for malignant neoplasm of breast (principal)
CPT/HCPCS: 77063; 77067

== ENCOUNTER → 2021-03-25 07:48 | Outpatient (CLI) | payer OTHER, SELFPAY ==
[2021-03-25 09:04] LABS: Cholesterol 182 mg/dL (200); High Density Lipoprotein 65 mg/dL; Triglycerides 92 mg/dL; Very Low Density Lipoprotein 18 mg/dL (5-40)
== END ==
PROVIDERS: PCP Family Medicine; Referring Provider Family Medicine; Visit Provider Family Medicine
DX: E78.5 Hyperlipidemia, unspecified (principal)
CPT/HCPCS: 36415; 80061

== ENCOUNTER → 2021-05-06 13:09 | Outpatient (CLI) | payer OTHER, SELFPAY ==
[2021-05-06 13:38] LABS: Absolute Lymphocyte Count 1.88 X10^3/uL (0.83-4.51); Absolute Neutrophil Count 3.9 X10^3/uL (2.0-7.7); Basophil# 0.03 X10^3/uL; Basophil% 0.5 % (0-1); Eosinophil# 0.12 X10^3/uL; Eosinophils% 1.9 % (0-5); Hematocrit 39.6 % (37-47); Hemoglobin 12.9 g/dL (12.0-15.0); Lymphocyte # 1.88 X10^3/ul (0.83-4.51); Lymphocyte % 29.3 % (19-41); Mean Corp Hgb Conc 32.6 g/dL (32-36); Mean Corpuscular Hgb 28.9 pg (27.0-32.0); Mean Corpuscular Volume 88.8 fL (81-99); Mean Platelet Vol. 9.5 fl (6.2-12.0); Monocyte# 0.44 X10^3/uL; Monocyte% 6.9 % (0-10); NRBC Flagged by Analyzer 0 % (0-5); Neutrophil # 3.93 X10^3/uL (2.7-7.7); Neutrophil % 61.1 % (47-70); Platelet Count 366 K/mm3 (150-450); RBC Distribution Width CV 13.3 % (11.6-14.6); RBC Distribution Width SD 43.8 fl (35.1-43.9); Red Blood Count 4.46 M/mm3 (4.2-5.4); White Blood Count 6.4 K/mm3 (4.4-11.0)
[2021-05-06 14:12] LABS: Vitamin B12 671 pg/mL (211-911)
[2021-05-06 14:14] LABS: ALB/GLOB Ratio 0.8 RATIO (0.9-2.4); AST(SGOT) 26 U/L (15-37); Alanine Aminotransfer ALT/SGPT 28 U/L (13-56); Albumin, Serum 3.5 g/dL (3.2-5.0); Alkaline Phosphatase 91 U/L (45-117); Anion Gap 4 (5-15); BUN 15 mg/dL (7-18); BUN/Creat Ratio 17.1 RATIO (10-20); Calcium,Total 9.2 mg/dL (8.5-10.1); Chloride 106 mmol/L (98-107); Creatinine, Serum 0.88 mg/dL (0.55-1.02); EST Glomerular Filtration Rate 67 mL/min (>60); Est Glom Filt Rate - Afr Amer 82 mL/min (>60); Globulin 4.4 g/dL (2.2-4.2); Glucose 84 mg/dL (74-106); Magnesium 2.2 mg/dL (1.6-2.6); Potassium 3.9 mmol/L (3.5-5.1); Protein, Total 7.9 g/dL (6.4-8.2); Sodium Level 138 mmol/L (136-145)
== END ==
PROVIDERS: PCP Family Medicine; Referring Provider Family Medicine; Visit Provider Family Medicine
DX: R25.2 Cramp and spasm (principal); Z51.81 Encounter for therapeutic drug level monitoring
CPT/HCPCS: 36415; 80053; 82607; 83735; 85025

== ENCOUNTER → 2021-07-24 16:27 | Outpatient (CLI) | payer OTHER, SELFPAY | PROVIDERS: PCP Family Medicine; Visit Provider Family Medicine | DX: Z20.822 Contact with and (suspected) exposure to COVID-19 (principal) | CPT/HCPCS: 87635; U0005; U0003 ==

== ENCOUNTER 2021-12-31 09:55 | Outpatient (CLI) | payer BC, SELFPAY ==
--- NOTE | 2021-12-31 09:57 | BI_ITS ---
MAMMOGRAPHY - BILATERAL SCREENING 3-D TOMOSYNTHESIS REASON FOR EXAM: Female, 71 years old. SCREENING PERTINENT HISTORY: No significant family history. TECHNIQUE: 2-D mammograms and 3-D Tomosynthesis of the breast (s) were performed. CAD was performed. COMPARISON: 12/25/2020 FINDINGS: The breast composition is composed of scattered fibroglandular density. Scattered benign calcifications are seen. No dense spiculated masses or suspicious microcalcifications are identified. No architectural distortion is identified. There is no skin thickening or retraction. There has been no significant change since the prior study. BI/SCRN MAMM (CAD)W/BETTY BILAT IMPRESSION: No mammographic signs of malignancy. Routine yearly mammograms recommended. ASSESSMENT CATEGORY: BIRADS Category 1: Negative. A letter regarding these results will be sent to the patient by the facility within 30 days. FOLLOW UP RECOMMENDATION: Yearly follow up mammogram recommended. (A) Approximately 10% of breast cancers are not detected by mammography. A normal mammogram should not delay biopsy of a clinically suspicious abnormality. Electronically Signed: Merrick Shah MD at 16:40 EDT ,
--- NOTE | 2021-12-31 10:00 | BD_ITS ---
STUDY: DUAL ENERGY X-RAY ABSORPTIOMETRY / DXA REASON FOR EXAM: Female, 71 years old. M85.89. Patient is postmenopausal. TECHNIQUE: Bone Mineral Density (BMD) measurements of lumbar spine and bilateral hips were obtained. COMPARISON: Comparison is made with prior study dated 11/12/2017 and 09/20/2013. FINDINGS: Lumbar Spine (L1-L4): g/cm2 (0.843) / T-score (-1.9) / Z-score (0.4) Findings are suggestive of osteopenia with a moderate fracture risk. Left Femur Total: g/cm2 (0.773) / T-score (-1.4) / Z-score (0.2) Left Femoral Neck: g/cm2 (0.656) / T-score (-1.7) / Z-score (0.2) Right Femur Total: g/cm2 (0.798) / T-score (-1.2) / Z-score (0.4) Right Femoral Neck: g/cm2 (0.718) / T-score (-1.2) / Z-score (0.7) The T-Scores on the most recent prior examination were: Lumbar Spine (L1-L4): There has been worsening of bone density since the previous examination. Left Femur Total: which represents an improvement of 2.1%. Right Femur Total: which represents an improvement of 4.6%. BD/Dexa Bone Density Study IMPRESSION: The patient is considered osteopenic as outlined below according to World Asa Organization (WHO) criteria with a moderate fracture risk. There has been improvement of bone density since the previous examination. Reference Information: The T-score is the number of standard deviations above or below the standard which is normal for young adults at their peak bone mineral density. The World Health Organization (WHO) interprets the T-scores as follows: Above -1 Normal bone density Between -1 and -2.5 Osteopenia Equal to / or below -2.5 Osteoporosis As a practical clinical guideline, osteopenia may be graded as follows: Mild -1 through -1.5 Moderate -1.6 through -2.0 Severe -2.1 through -2.4 The Z-score is the number of standard deviations above or below age-matched controls. A Z-score of less than -1.5 would be considered abnormal. References: 1. NIH Osteoporosis and Related Bone Diseases www osteo.org 2. International Society for Clinical Densitometry www iscd.org 3. National Osteoporosis Foundation www nof.org Electronically Signed: Calvin Khan MD at 8:57 EDT ,
== END 2021-12-31 23:59 | disposition home or self-care (01) ==
LOC: OPBD 09:55
PROVIDERS: PCP Family Medicine; Visit Provider Family Medicine
DX: Z12.31 Encounter for screening mammogram for malignant neoplasm of breast (principal); M85.89 Other specified disorders of bone density and structure, multiple sites; Z78.0 Asymptomatic menopausal state
CPT/HCPCS: 77063; 77067; 77080

== ENCOUNTER 2022-01-08 15:03 | Outpatient (CLI) | payer BC, SELFPAY ==
--- NOTE | 2022-01-08 13:20 | LES_PTH ---
PATIENT: ROLY ARCEO [facility]: [facility] U#:[id number] AGE/SX: 71/F ROOM: RE01/08/[address]: Dr. Christiano Burnett DO : 1950 BED: DIS: 01/08/2022 SPEC #: [id number] RECD: 01/08/22 14:58 STATUS: MARCIE REQ #: [id number] SIL: 01/08/22 13:[address]: Christiano Burnett DEPT: SURGICAL PATHOLOGY RECD BY: Ludivina Meza ENTERED: 01/09/22 07:41 SP TYPE: Lesion OTHR DR: Dr. Sandi Vogt DO Tissues: Skin of arm Procedures: Surgery Specimen Level IV HEADER OPERATION: Excision skin lesion left wrist PRE-OP DIAGNOSIS: Irritated skin lesion TISSUE SUBMITTED: Nevus left wrist MICROSCOPIC DIAGNOSIS Left wrist nevus, excision: Verrucous keratosis. Negative for malignancy. See comment. SJ:kelsea 01/10/2022 COMMENT Clinical correlation and appropriate follow up are necessary. MICROSCOPIC DESCRIPTION Slides are reviewed. GROSS DESCRIPTION Received is one container labeled with the patient's name and not further designated. The specimen consists of a piece of keating-white skin measuring 1 x 0.5 x 0.3 cm. The specimen is inked, serially sectioned and submitted entirely in one cassette. / GASTON:kelsea 01/09/2022 TC:5 CPT: 78761
== END 2022-01-08 23:59 | disposition home or self-care (01) ==
LOC: LABSPEC 15:04
PROVIDERS: PCP Family Medicine; Visit Provider Family Medicine
DX: D36.7 Benign neoplasm of other specified sites (principal); L57.0 Actinic keratosis
CPT/HCPCS: 88305

== ENCOUNTER → 2022-06-10 | Outpatient (CLI) | payer BC, SELFPAY ==
--- NOTE | 2022-06-10 09:51 | RAD_ITS ---
HISTORY: PAIN. TECHNIQUE: XR Hip Unilateral with Pelvis when performed; 2-3 Views. COMPARISON: 10/06/2016. FINDINGS: OSSEOUS STRUCTURES: No acute displaced fracture identified. Note that overlapping bowel shadows may obscure osseous detail. Mineralization unremarkable. JOINT SPACES: No dislocation. Mild joint space narrowing of the left hip, similar to prior. SOFT TISSUES: Tubal ligation clips again seen in the pelvis. RAD/HIP, UNI W/ Pelvis 2-3 Views IMPRESSION: No acute displaced fracture or dislocation identified. Mild degenerative change of the left hip. Electronically Signed: Margot Bui MD at 16:52 EDT ,
--- NOTE | 2022-06-10 10:05 | RAD_ITS ---
HISTORY: PAIN. TECHNIQUE: XR Spine Lumbar Min 4 Views. COMPARISON: 10/06/2016. FINDINGS: VERTEBRAE: Vertebral body heights preserved. Degenerative changes of the posterior elements. ALIGNMENT: No significant anterior or posterior subluxation. INTERVERTEBRAL DISCS: Mild progression of intervertebral disc space narrowing and endplate changes and osteophytes at L1-2 and L5-S1. SOFT TISSUES: Moderate stool in the colon. Tubal ligation clips in the pelvis. RAD/L/S Spine Min 4 Views IMPRESSION: No acute fracture or dislocation identified in the lumbar spine. Multilevel degenerative change. Electronically Signed: Margot Bui MD at 16:53 EDT ,
[2022-06-10 12:39] LABS: Absolute Lymphocyte Count 1.93 X10^3/uL (0.83-4.51); Basophil# 0.04 X10^3/uL; Basophil% 0.7 % (0-1); Eosinophil# 0.15 X10^3/uL; Eosinophils% 2.7 % (0-5); Hematocrit 38.8 % (37-47); Lymphocyte # 1.93 X10^3/ul (0.83-4.51); Lymphocyte % 34.8 % (19-41); Mean Corp Hgb Conc 33.5 g/dL (32-36); Mean Corpuscular Hgb 30.6 pg (27.0-32.0); Mean Corpuscular Volume 91.3 fL (81-99); Mean Platelet Vol. 10.6 fl (6.2-12.0); Monocyte# 0.46 X10^3/uL; Monocyte% 8.3 % (0-10); NRBC Flagged by Analyzer 0 % (0-5); Neutrophil # 2.97 X10^3/uL (2.7-7.7); Neutrophil % 53.5 % (47-70); Platelet Count 401 K/mm3 (150-450); RBC Distribution Width CV 13.1 % (11.6-14.6); RBC Distribution Width SD 43.6 fl (35.1-43.9); Red Blood Count 4.25 M/mm3 (4.2-5.4); White Blood Count 5.6 K/mm3 (4.4-11.0)
[2022-06-10 12:40] LABS: Erythrocyte Sedimentation Rate 19 mm/hr (0-30)
[2022-06-10 13:28] LABS: ALB/GLOB Ratio 0.8 RATIO (0.9-2.4); AST(SGOT) 26 U/L (15-37); Alanine Aminotransfer ALT/SGPT 33 U/L (13-56); Albumin, Serum 3.6 g/dL (3.2-5.0); Alkaline Phosphatase 82 U/L (45-117); Anion Gap 8 (5-15); BUN 17 mg/dL (7-18); BUN/Creat Ratio 18.7 RATIO (10-20); CRP 6.74 mg/L (0.0-3.0); Calcium,Total 9.5 mg/dL (8.5-10.1); Chloride 103 mmol/L (98-107); Creatinine, Serum 0.91 mg/dL (0.55-1.02); EST Glomerular Filtration Rate 65 mL/min (>60); Est Glom Filt Rate - Afr Amer 78 mL/min (>60); Free T3 2.8 pg/mL (2.18-3.98); Globulin 4.4 g/dL (2.2-4.2); Glucose 88 mg/dL (74-106); Potassium 3.8 mmol/L (3.5-5.1); Sodium Level 138 mmol/L (136-145); Thyroid Stim Hormone (TSH) 2.39 uIU/mL (0.358-3.74)
== END | disposition home or self-care (01) ==
LOC: MTLAB 09:50
PROVIDERS: PCP Family Medicine; Referring Provider Family Medicine; Visit Provider Family Medicine
DX: M54.16 Radiculopathy, lumbar region (principal); M25.552 Pain in left hip; I10 Essential (primary) hypertension; Z51.81 Encounter for therapeutic drug level monitoring; R19.7 Diarrhea, unspecified
CPT/HCPCS: 36415; 72110; 73502; 80053; 83630; 84443; 84481; 85025; 85652; 86140

== ENCOUNTER → 2022-12-09 | Outpatient (CLI) | payer BC, SELFPAY ==
[2022-12-09 09:56] LABS: Absolute Lymphocyte Count 1.69 X10^3/uL (0.83-4.51); Absolute Neutrophil Count 4.4 X10^3/uL (2.0-7.7); Basophil# 0.05 X10^3/uL; Basophil% 0.8 % (0-1); Eosinophil# 0.11 X10^3/uL; Eosinophils% 1.7 % (0-5); Hematocrit 41.8 % (37-47); Hemoglobin 13.6 g/dL (12.0-15.0); Lymphocyte # 1.69 X10^3/ul (0.83-4.51); Lymphocyte % 25.4 % (19-41); Mean Corp Hgb Conc 32.5 g/dL (32-36); Mean Corpuscular Hgb 29.7 pg (27.0-32.0); Mean Corpuscular Volume 91.3 fL (81-99); Mean Platelet Vol. 11.2 fl (6.2-12.0); Monocyte# 0.41 X10^3/uL; Monocyte% 6.2 % (0-10); NRBC Flagged by Analyzer 0 % (0-5); Neutrophil # 4.39 X10^3/uL (2.7-7.7); Neutrophil % 65.7 % (47-70); Platelet Count 337 K/mm3 (150-450); RBC Distribution Width CV 13.1 % (11.6-14.6); RBC Distribution Width SD 43.7 fl (35.1-43.9); Red Blood Count 4.58 M/mm3 (4.2-5.4); White Blood Count 6.7 K/mm3 (4.4-11.0)
[2022-12-09 10:11] LABS: ALB/GLOB Ratio 0.8 RATIO (0.9-2.4); AST(SGOT) 21 U/L (15-37); Alanine Aminotransfer ALT/SGPT 28 U/L (13-56); Albumin, Serum 3.6 g/dL (3.2-5.0); Alkaline Phosphatase 85 U/L (45-117); Anion Gap 5 (5-15); BUN 18 mg/dL (7-18); BUN/Creat Ratio 19.4 RATIO (10-20); Calcium,Total 9.7 mg/dL (8.5-10.1); Chloride 105 mmol/L (98-107); Cholesterol 225 mg/dL (200); Creatinine, Serum 0.93 mg/dL (0.55-1.02); EST Glomerular Filtration Rate 63 mL/min (>60); Est Glom Filt Rate - Afr Amer 76 mL/min (>60); Globulin 4.6 g/dL (2.2-4.2); Glucose 105 mg/dL (74-106); High Density Lipoprotein 50 mg/dL; Potassium 4.1 mmol/L (3.5-5.1); Protein, Total 8.2 g/dL (6.4-8.2); Sodium Level 140 mmol/L (136-145); Triglycerides 130 mg/dL; Very Low Density Lipoprotein 26 mg/dL (5-40); Vitamin D,25 Hydroxy 39.7 ng/mL
== END | disposition home or self-care (01) ==
LOC: MTLAB 07:31
PROVIDERS: PCP Family Medicine; Referring Provider Family Medicine; Visit Provider Family Medicine
DX: I10 Essential (primary) hypertension (principal); Z51.81 Encounter for therapeutic drug level monitoring; E78.5 Hyperlipidemia, unspecified; E55.9 Vitamin D deficiency, unspecified
CPT/HCPCS: 36415; 80053; 80061; 82306; 85025

== ENCOUNTER 2023-01-01 07:56 | Outpatient (CLI) | payer BC, SELFPAY ==
--- NOTE | 2023-01-01 07:59 | BI_ITS ---
MAMMOGRAPHY - BILATERAL SCREENING 3-D TOMOSYNTHESIS REASON FOR EXAM: Female, 72 years old. SCREENING PERTINENT HISTORY: No significant family history. TECHNIQUE: 2-D mammograms and 3-D Tomosynthesis of the breast (s) were performed. CAD was performed. COMPARISON: 12/31/2021 FINDINGS: The breast composition is composed of scattered fibroglandular density. Scattered benign calcifications are seen. No dense spiculated masses or suspicious microcalcifications are identified. No architectural distortion is identified. There is no skin thickening or retraction. There has been no significant change since the prior study. BI/SCRN MAMM (CAD)W/BETTY BILAT IMPRESSION: No mammographic signs of malignancy. Routine yearly mammograms recommended. ASSESSMENT CATEGORY: BIRADS Category 1: Negative. A letter regarding these results will be sent to the patient by the facility within 30 days. FOLLOW UP RECOMMENDATION: Yearly follow up mammogram recommended. (A) Approximately 10% of breast cancers are not detected by mammography. A normal mammogram should not delay biopsy of a clinically suspicious abnormality. Electronically Signed: Del William MD at 9:20 EDT ,
== END 2023-01-01 23:59 | disposition home or self-care (01) ==
LOC: OPBI 07:57
PROVIDERS: PCP Family Medicine; Visit Provider Family Medicine
DX: Z12.31 Encounter for screening mammogram for malignant neoplasm of breast (principal)
CPT/HCPCS: 77063; 77067

== ENCOUNTER → 2023-01-23 | Outpatient (CLI) | payer BC, SELFPAY ==
--- NOTE | 2023-01-23 07:21 | US_ITS ---
STUDY: ABDOMINAL ULTRASOUND - RIGHT UPPER QUADRANT REASON FOR VISIT: Female, 72 years old. Right upper quadrant pain for 3 weeks. TECHNIQUE: Ultrasound evaluation of the right upper quadrant was performed with real-time and static avery-scale imaging. TECHNICAL QUALITY: Adequate. COMPARISON: None. FINDINGS: Liver: The liver measures 14.3 cm. There is normal echogenicity of the liver. The bile ducts are within normal limits. There is hepatic color flow. The direction of portal flow is hepatopetal. There is no demonstrated mass lesion. Gallbladder: Normal distended gallbladder. The gallbladder wall measures 2.4 mm. There is a negative sonographic Figueroa''s sign. There is no pericholecystic fluid. There are no gallstones. Common Bile Duct (C.B.D.): The common bile duct measures 4.2 mm. Pancreas: Normal size of the head, body and tail of the pancreas. There is increased echogenicity of the pancreas. There is no demonstrated pancreatic mass or cyst. Right Kidney: Normal size of the right kidney. The right kidney measures 9.1 cm. Normal renal cortex. The right cortex measures 1.1 cm. There is no demonstrated renal mass or cyst. There is no right hydronephrosis. US/Abdomen Limited IMPRESSION: 1. Mildly increased echogenicity of the pancreas. Question fatty replacement. 2. Otherwise normal right upper quadrant abdominal ultrasound. Electronically Signed: Nathaniel Menendez DO at 18:53 EDT Reading Location ID and State: [address] Tel [phone], Service support ,
== END | disposition home or self-care (01) ==
LOC: US 07:19
PROVIDERS: PCP Family Medicine; Referring Provider Family Medicine; Visit Provider Family Medicine
DX: R10.11 Right upper quadrant pain (principal)
CPT/HCPCS: 76705

== ENCOUNTER 2023-03-11 07:10 | Day surgery (SDC) | payer BC, SELFPAY ==
[2023-03-11] VITALS (7 sets, daily range): BP systolic 129–147; BP diastolic 74–87; PULSE 74–91; RESP 16; TEMP 36.2–36.6; O2SAT 98–100; BMI 30.4
--- NOTE | 2023-03-11 07:18 | HP.PCM_ITS ---
HPI - General General Date of Admission: 03/11/23 HPI Narrative ROLY ARCEO, is a 72 F who presents for a screening colonoscopy. Patient last colonoscopy was in [address] Sims per patient negative. Patient has bowel movements daily denies any blood. Patient denies any family history of colon cancer. Patient denies any chronic abdominal pain/nausea/vomiting/reflux. Patient states she does have issues with hemorrhoids and have a little bit of bleeding with her prep. Patient does not take any medications for the hemorrhoids. [facility] Medical History (Updated 03/06/23 @ 12:46 by Rachel Galindo) Anxiety Arthritis Gastric reflux Hemorrhoids History of echocardiogram History of stress test Hypertension Leg cramps Migraine headache Non-smoker Wears glasses Home Medications lisinopril 10 mg-hydrochlorothiazide 12.5 mg tablet 1 tab PO DAILY 01/22/23 [History Last Taken Unknown] Allergy/AdvReac Type Severity Reaction Status Date / Time cefdinir Allergy Rash Verified 03/11/23 07:50 cephalexin Allergy Rash Verified 03/11/23 07:50 codeine Allergy Other Verified 03/11/23 07:50 Penicillins Allergy Other Verified 03/11/23 07:50 tramadol Allergy Nausea Verified 03/11/23 07:50 Family History (Updated 01/22/23 @ 08:34 by Sunita Parker) Mother Diabetes Other Heart disease Surgical History History of cardiac radiofrequency ablation Hx of bilateral cataract extraction Hx of right knee surgery Hx of tubal ligation Social History (Updated 01/22/23 @ 08:34 by Sunita Parker) current occupational status: retired Smoking Status: Never smoker Past Medical/Surgical History Planned Operation Planned Operative Procedure/s: COLONOSCOPY Previous Hospitalizations/Surgeries HX Hospitalizations: No Any Problems With Anesthesia: Yes (NAUSEA/VOMITING) You/Your Family Experience Fever (Hyperthermia) With Anes: No Cholinesterase deficiency: No Cardiovascular Hx of Irregular Heartbeat and/or Afib: Yes Hx Heart Attack: No Hx Congestive Heart Failure: No Hx Rheumatic Fever: No Hx Hypertension: Yes Hx Internal Defibrillator: No Hx Pacemaker: No Hx Pain in Legs when Walking/Leg Cramps: No Respiratory HX of Shortness of Breath: No Hx Chronic Obstructive Pulmonary Disease (COPD): No Hx Asthma: No Hx Emphysema: No Hx Sleep Apnea: No Hx Respiratory Tract Infection/Cold (presently): No Do You Snore Loudly (louder than talking or can be heard): No Do You Often Feel Tired/ Fatigued/ Sleepy Dring Daytime?: No Has Anyone Observed You Stop Breathing During Sleep?: No Result (for STOP score): Negative Smoking Status: Never smoker Gastrointestinal Hx Gastroesophageal Reflux: No Hx Gastrointestinal Bleed: No Hx Ulcer: No Neurological Hx Seizures: No Hx Multiple Sclerosis: No Hx Parkinson's Disease: No Hx Head/Neck Injury: No Hx Headaches: Yes Hx Back Injury/Pain: No Does patient have nerve stimulator: No Blood Disorder Hx Hepatitis: No Hx Anemia: No Reproduction : No Genitourinary Hx Renal Disease: No Hx Dialysis: No Musculoskeletal Hx Arthritis: No Hx Gout: No Endocrine Hx Diabetes: No Thyroid Disease: No Psycho/Social Hx Anxiety: Yes Hx Depression: No Hx Dementia: No Miscellaneous Hx Cancer: No Allergies cefdinir Allergy (Verified 03/11/23 07:50) Rash cephalexin Allergy (Verified 03/11/23 07:50) Rash codeine Allergy (Verified 03/11/23 07:50) Other Irregular heart beat Penicillins Allergy (Verified 03/11/23 07:50) Other Irregular heart beat tramadol Allergy (Verified 03/11/23 07:50) Nausea Discharge Is Pt Admitted From a Usp, or a Correction: No Who Could Help: From the PAT History Number of Risk Factors: 1 Physical Exam Const alert, oriented x3 and no apparent distress HEENT normocephalic and head/scalp atraumatic Resp normal respiratory effort Cardio regular rate GI soft to palpation and non-tender; Negative for non-distended Palpation: Negative for guarding Extremity no clubbing, cyanosis or edema Neuro CN's II-XII intact bilaterally Psych mental status grossly normal Assessment & Plan Assessment/Plan (1) Encounter for screening for malignant neoplasm of colon: Surgery Risks - Colonoscopy I discussed with the patient the risks of the procedure: Yes Risks Include but are not Limited To: Risks include but are not limited to: Bleeding, perforation requiring further surgery, inability to complete colonoscopy requiring barium enema.
[2023-03-11] MEDS: Lactated Ringers 1,000 ML 15 ML IV (07:29)
--- NOTE | 2023-03-11 08:34 | OP.COLON_ITS ---
Patient Name: Dayana Abdi Procedure Date: 03/11/2023 8:03 AM Date of : 1950 Age: 72 Procedure: Colonoscopy Indications: Screening for colorectal malignant neoplasm Providers: Nadira Hernandez MD Medicines: Monitored Anesthesia Care Patient Profile: This is a 72 year old female. Last Colonoscopy: 10 years ago. Complications: No immediate complications. Procedure: Pre-Anesthesia Assessment: - Prior to the procedure, a History and Physical was performed, and patient medications and allergies were reviewed. The patient's tolerance of previous anesthesia was also reviewed. The risks and benefits of the procedure and the sedation options and risks were discussed with the patient. All questions were answered, and informed consent was obtained. Prior Anticoagulants: The patient has taken no previous anticoagulant or antiplatelet agents. ASA Grade Assessment: Per anesthesia. After reviewing the risks and benefits, the patient was deemed in satisfactory condition to undergo the procedure. After I obtained informed consent, the scope was passed under direct vision. Throughout the procedure, the patient's blood pressure, pulse, and oxygen saturations were monitored continuously. The pediatric colonoscope was introduced through the anus and advanced to the cecum, identified by the appendiceal orifice, ileocecal valve and palpation. The colonoscopy was performed without difficulty. The patient tolerated the procedure well. The quality of the bowel preparation was good. Scope In: 8:08:39 AM Scope Withdrawal Time 0 hours 7 minutes 37 seconds Scope Out: 8:25:12 AM Total Procedure Duration Time 0 hours 16 minutes 33 seconds Findings: Hemorrhoids were found on perianal exam. Non-bleeding external and internal hemorrhoids were found. The hemorrhoids were small and Grade I (internal hemorrhoids that do not prolapse). The entire examined colon appeared normal. Impression: - Hemorrhoids found on perianal exam. - Non-bleeding external and internal hemorrhoids. - The entire examined colon is normal. - No specimens collected. Recommendation: - Discharge patient to home. - Resume previous diet. - Continue present medications. - Repeat colonoscopy in 10 years for surveillance based on pathology results. Procedure Code(s): --- Professional --- G0121, PT, Colorectal cancer screening; colonoscopy on individual not meeting criteria for high risk Diagnosis Code(s): --- Professional --- Z12.11, Encounter for screening for malignant neoplasm of colon K64.0, First degree hemorrhoids CPT copyright 2017 [employer]. All rights reserved. The codes documented in this report are preliminary and upon rock duster review may be revised to meet current compliance requirements. MD Nadira Cuellar MD 03/11/2023 8:33:48 AM This report has been signed electronically. Number of Addenda: 0 Note Initiated On: 03/11/2023 8:03 AM
--- NOTE | 2023-03-11 08:35 | OP.CCLET_ITS ---
03/11/2023 Sandi Vogt [address] [facility] [place] [address] Re : Colonoscopy procedure for Dayana Abdi Dear Dr. Vogt This procedure was performed on Saturday, March 11, 2023. My impressions and recommendations are as follows: Impressions : - Hemorrhoids found on perianal exam. - Non-bleeding external and internal hemorrhoids. - The entire examined colon is normal. - No specimens collected. Recommendations : - Discharge patient to home. - Resume previous diet. - Continue present medications. - Repeat colonoscopy in 10 years for surveillance based on pathology results. My findings are described in the full procedure note, which is enclosed. If I can be of further assistance, please feel free to contact me at Doctor phone number(s): , Work: . Sincerely, MD Nadira Cuellar MD 03/11/2023 8:33:48 AM This report has been signed electronically.
== END 2023-03-11 09:22 | disposition home or self-care (01) ==
LOC: EN 07:10 → AC 07:11
PROVIDERS: PCP Family Medicine; Referring Provider Surgery; Visit Provider Surgery
PROC: 0DJD8ZZ Inspection of Lower Intestinal Tract, Via Natural or Artificial Opening Endoscopic (ICD-10-PCS; CPT 45378; principal; 2023-03-11 08:10)
DX: Z12.11 Encounter for screening for malignant neoplasm of colon (principal); K64.0 First degree hemorrhoids; I10 Essential (primary) hypertension; K52.9 Noninfective gastroenteritis and colitis, unspecified; Z87.19 Personal history of other diseases of the digestive system; Z79.899 Other long term (current) drug therapy
CPT/HCPCS: 45378; J7120; J2405

== ENCOUNTER → 2023-12-09 | Outpatient (CLI) | payer BC, SELFPAY ==
[2023-12-09 11:58] LABS: Absolute Lymphocyte Count 2.11 X10^3/uL (0.83-4.51); Absolute Neutrophil Count 6.1 X10^3/uL (2.0-7.7); Basophil# 0.06 X10^3/uL; Basophil% 0.7 % (0-1); Eosinophil# 0.07 X10^3/uL; Eosinophils% 0.8 % (0-5); Hematocrit 39.3 % (37-47); Lymphocyte # 2.11 X10^3/ul (0.83-4.51); Lymphocyte % 23.8 % (19-41); Mean Corp Hgb Conc 33.1 g/dL (32-36); Mean Corpuscular Hgb 29.7 pg (27.0-32.0); Mean Corpuscular Volume 89.9 fL (81-99); Monocyte# 0.56 X10^3/uL; Monocyte% 6.3 % (0-10); NRBC Flagged by Analyzer 0 % (0-5); Neutrophil # 6.05 X10^3/uL (2.7-7.7); Neutrophil % 68.2 % (47-70); Platelet Count 440 K/mm3 (150-450); RBC Distribution Width CV 12.9 % (11.6-14.6); RBC Distribution Width SD 42.7 fl (35.1-43.9); Red Blood Count 4.37 M/mm3 (4.2-5.4); White Blood Count 8.9 K/mm3 (4.4-11.0)
[2023-12-09 12:43] LABS: ALB/GLOB Ratio 0.9 RATIO (0.9-2.4); AST(SGOT) 23 U/L (15-37); Alanine Aminotransfer ALT/SGPT 28 U/L (13-56); Albumin, Serum 3.6 g/dL (3.2-5.0); Alkaline Phosphatase 80 U/L (45-117); Anion Gap 6 (5-15); BUN 17 mg/dL (7-18); BUN/Creat Ratio 19.5 RATIO (10-20); Calcium,Total 9.2 mg/dL (8.5-10.1); Chloride 106 mmol/L (98-107); Cholesterol 224 mg/dL (200); Creatinine, Serum 0.87 mg/dL (0.55-1.02); EST Glomerular Filtration Rate 67 mL/min (>60); Est Glom Filt Rate - Afr Amer 82 mL/min (>60); Globulin 4.1 g/dL (2.2-4.2); Glucose 94 mg/dL (74-106); High Density Lipoprotein 43 mg/dL; Potassium 3.6 mmol/L (3.5-5.1); Protein, Total 7.7 g/dL (6.4-8.2); Sodium Level 140 mmol/L (136-145); Triglycerides 221 mg/dL; Very Low Density Lipoprotein 44 mg/dL (5-40)
== END | disposition home or self-care (01) ==
PROVIDERS: PCP Family Medicine; Visit Provider Family Medicine
DX: Z51.81 Encounter for therapeutic drug level monitoring (principal); I10 Essential (primary) hypertension; E78.5 Hyperlipidemia, unspecified
CPT/HCPCS: 36415; 80053; 80061; 85025

== ENCOUNTER → 2024-01-19 | Outpatient (CLI) | payer BC, SELFPAY ==
--- NOTE | 2024-01-19 09:54 | BI_ITS ---
MAMMOGRAPHY - BILATERAL SCREENING REASON FOR EXAM: Female, 73 years old. Routine annual screening examination. PERTINENT HISTORY: Non-contributory. TECHNIQUE: Digital bilateral breast betty (3D mammographic acquisition) in the CC and MLO projections. 2-D mediolateral oblique (MLO) and craniocaudad (CC) views of both breasts were obtained. CAD: Full Field Digital Mammography with Computer Added Detection was performed. COMPARISON: Comparison is made with prior study January 01, 2023 and December 31, 2021. FINDINGS: Breast Composition: There are scattered areas of fibroglandular density. There are no dominant masses or suspicious calcifications. Stable small benign-appearing bilateral axillary lymph nodes. No other significant abnormalities are identified. There has been no significant change since the prior study. BI/SCRN MAMM (CAD)W/BETTY BILAT IMPRESSION: Stable bilateral screening mammogram. Yearly follow-up mammogram recommended. (A) ASSESSMENT CATEGORY: BIRADS Category 2: Benign. A letter regarding these results will be sent to the patient by the facility within 30 days. Approximately 10% of breast cancers are not detected by mammography. A normal mammogram should not delay biopsy of a clinically suspicious abnormality. [id number] Electronically Signed: Calvin Khan MD at 11:47 EDT ,
--- NOTE | 2024-01-19 09:57 | BD_ITS ---
STUDY: DUAL ENERGY X-RAY ABSORPTIOMETRY / DXA REASON FOR EXAM: Female, 73 years old. M810 TECHNIQUE: Bone Mineral Density (BMD) measurements of lumbar spine and bilateral hips were obtained. COMPARISON: Comparison is made with prior study dated December 31, 2021. FINDINGS: Lumbar Spine (L1-L4): g/cm2 (0.844) / T-score (-1.6) / Z-score (0.7) Findings are suggestive of osteopenia with a moderate fracture risk. Left Femur Total: g/cm2 (0.791) / T-score (-1.2) / Z-score (0.5) Left Femoral Neck: g/cm2 (0.696) / T-score (-1.4) / Z-score (0.7) Right Femur Total: g/cm2 (0.798) / T-score (-1.2) / Z-score (0.6) Right Femoral Neck: g/cm2 (0.715) / T-score (-1.2) / Z-score (0.8) The T-Scores on the most recent prior examination were: Lumbar Spine (L1-L4): There has been improvement of bone density since the previous examination. Left Femur Total: which represents an improvement of 2.4%. Right Femur Total: which represents an improvement of 0.1%. BD/Dexa Bone Density Study IMPRESSION: The patient is considered osteopenic as outlined below according to World Asa Organization (WHO) criteria with a moderate fracture risk. There has been improvement of bone density since the previous examination. Reference Information: The T-score is the number of standard deviations above or below the standard which is normal for young adults at their peak bone mineral density. The World Health Organization (WHO) interprets the T-scores as follows: Above -1 Normal bone density Between -1 and -2.5 Osteopenia Equal to / or below -2.5 Osteoporosis As a practical clinical guideline, osteopenia may be graded as follows: Mild -1 through -1.5 Moderate -1.6 through -2.0 Severe -2.1 through -2.4 The Z-score is the number of standard deviations above or below age-matched controls. A Z-score of less than -1.5 would be considered abnormal. References: 1. NIH Osteoporosis and Related Bone Diseases www osteo.org 2. International Society for Clinical Densitometry www iscd.org 3. National Osteoporosis Foundation www nof.org Electronically Signed: Calvin Khan MD at 9:25 EDT ,
== END | disposition home or self-care (01) ==
PROVIDERS: PCP Family Medicine; Referring Provider Family Medicine; Visit Provider Family Medicine
DX: Z12.31 Encounter for screening mammogram for malignant neoplasm of breast (principal); M81.0 Age-related osteoporosis without current pathological fracture
CPT/HCPCS: 77063; 77067; 77080

== ENCOUNTER → 2024-07-19 | Outpatient (CLI) | payer BC, SELFPAY ==
[2024-07-19 13:02] LABS: Absolute Lymphocyte Count 1.79 X10^3/uL (0.83-4.51); Absolute Neutrophil Count 4.5 X10^3/uL (2.0-7.7); Basophil# 0.04 X10^3/uL; Basophil% 0.6 % (0-1); Eosinophil# 0.12 X10^3/uL; Eosinophils% 1.7 % (0-5); Hematocrit 40.2 % (37-47); Hemoglobin 13.1 g/dL (12.0-15.0); Lymphocyte # 1.79 X10^3/ul (0.83-4.51); Lymphocyte % 25.6 % (19-41); Mean Corp Hgb Conc 32.6 g/dL (32-36); Mean Corpuscular Hgb 29.1 pg (27.0-32.0); Mean Corpuscular Volume 89.3 fL (81-99); Mean Platelet Vol. 9.9 fl (6.2-12.0); Monocyte# 0.56 X10^3/uL; NRBC Flagged by Analyzer 0 % (0-5); Neutrophil # 4.45 X10^3/uL (2.7-7.7); Neutrophil % 63.8 % (47-70); Platelet Count 391 K/mm3 (150-450); RBC Distribution Width CV 13.2 % (11.6-14.6); RBC Distribution Width SD 43.3 fl (35.1-43.9)
[2024-07-19 13:14] LABS: D-Dimer Quantitative (DVT/PE) 0.82 FEU/ug/m (0.27-0.49)
[2024-07-19 13:36] LABS: ALB/GLOB Ratio 0.8 RATIO (0.9-2.4); AST(SGOT) 30 U/L (15-37); Alanine Aminotransfer ALT/SGPT 31 U/L (13-56); Albumin, Serum 3.6 g/dL (3.2-5.0); Alkaline Phosphatase 102 U/L (45-117); Anion Gap 4 (5-15); BUN 13 mg/dL (7-18); BUN/Creat Ratio 15.1 RATIO (10-20); Calcium,Total 9.5 mg/dL (8.5-10.1); Chloride 105 mmol/L (98-107); Creatinine, Serum 0.86 mg/dL (0.55-1.02); EST Glomerular Filtration Rate 68 mL/min (>60); Est Glom Filt Rate - Afr Amer 83 mL/min (>60); Globulin 4.3 g/dL (2.2-4.2); Glucose 99 mg/dL (74-106); Potassium 3.7 mmol/L (3.5-5.1); Protein, Total 7.9 g/dL (6.4-8.2); Sodium Level 138 mmol/L (136-145); Troponin-I HS 6 pg/mL (3.0-54.0)
[2024-07-19 17:04] LABS: BNP,B-Type NATRIURETIC PEPTIDE 20.9 pg/mL (0-100)
== END | disposition home or self-care (01) ==
LOC: LAB 12:32
PROVIDERS: PCP Family Medicine; Referring Provider Nurse Practitioner Family; Visit Provider Nurse Practitioner Family
DX: R07.9 Chest pain, unspecified (principal); I49.8 Other specified cardiac arrhythmias
CPT/HCPCS: 36415; 80053; 83880; 84484; 85025; 85379

== ENCOUNTER → 2024-08-09 | Outpatient (CLI) | payer BC, SELFPAY | END | disposition home or self-care (01) | LOC: PSN 07:28 | PROVIDERS: PCP Family Medicine; Referring Provider Nurse Practitioner Family; Visit Provider Nurse Practitioner Family | DX: I49.8 Other specified cardiac arrhythmias (principal); R07.9 Chest pain, unspecified | CPT/HCPCS: 93225; 93226 ==

== ENCOUNTER → 2024-10-14 | Outpatient (CLI) | payer BC, SELFPAY ==
--- NOTE | 2024-10-14 07:51 | RAD_ITS ---
EXAM: XR THORACIC SPINE, 2 VIEWS CLINICAL INDICATION: Pain in thoracic spine TECHNIQUE: Frontal and lateral views of the thoracic spine. COMPARISON: No relevant prior studies available. FINDINGS: VERTEBRAE: Unremarkable. Preserved vertebral body height. No fracture. No spondylolisthesis. Preservation of the normal thoracic kyphosis. No significant facet arthropathy. DISC SPACES: Mild degenerative changes of the intervertebral discs. RAD/Thoracic Spine 2 Views IMPRESSION: 1. No acute injuries identified involving the thoracic spine. 2. Mild degenerative disc disease. Electronically Signed: Everton Delaney MD at 16:33 EST ,
== END | disposition home or self-care (01) ==
LOC: RAD 07:50
PROVIDERS: PCP Family Medicine; Referring Provider Family Medicine; Visit Provider Family Medicine
DX: M54.6 Pain in thoracic spine (principal)
CPT/HCPCS: 72070

== ENCOUNTER → 2024-12-12 | Outpatient (CLI) | payer BC, SELFPAY ==
[2024-12-12 12:49] LABS: Absolute Lymphocyte Count 1.74 X10^3/uL (0.83-4.51); Absolute Neutrophil Count 4.8 X10^3/uL (2.0-7.7); Basophil# 0.05 X10^3/uL; Basophil% 0.7 % (0-1); Eosinophil# 0.08 X10^3/uL; Eosinophils% 1.1 % (0-5); Hematocrit 43.6 % (37-47); Hemoglobin 14.2 g/dL (12.0-15.0); Lymphocyte # 1.74 X10^3/ul (0.83-4.51); Lymphocyte % 24.4 % (19-41); Mean Corp Hgb Conc 32.6 g/dL (32-36); Mean Corpuscular Hgb 29.8 pg (27.0-32.0); Mean Corpuscular Volume 91.4 fL (81-99); Mean Platelet Vol. 10.6 fl (6.2-12.0); Monocyte# 0.47 X10^3/uL; Monocyte% 6.6 % (0-10); NRBC Flagged by Analyzer 0 % (0-5); Neutrophil # 4.78 X10^3/uL (2.7-7.7); Neutrophil % 66.9 % (47-70); Platelet Count 419 K/mm3 (150-450); RBC Distribution Width CV 13.2 % (11.6-14.6); RBC Distribution Width SD 45.2 fl (35.1-43.9); Red Blood Count 4.77 M/mm3 (4.2-5.4); White Blood Count 7.1 K/mm3 (4.4-11.0)
[2024-12-12 20:12] LABS: ALB/GLOB Ratio 0.9 RATIO (0.9-2.4); AST(SGOT) 24 U/L (15-37); Alanine Aminotransfer ALT/SGPT 30 U/L (13-56); Albumin, Serum 3.7 g/dL (3.2-5.0); Alkaline Phosphatase 97 U/L (45-117); Anion Gap 6 (5-15); BUN 18 mg/dL (7-18); BUN/Creat Ratio 20.4 RATIO (10-20); Calcium,Total 9.3 mg/dL (8.5-10.1); Chloride 102 mmol/L (98-107); Cholesterol 241 mg/dL (200); Creatinine, Serum 0.88 mg/dL (0.55-1.02); EST Glomerular Filtration Rate 66 mL/min (>60); Est Glom Filt Rate - Afr Amer 80 mL/min (>60); Globulin 4.3 g/dL (2.2-4.2); Glucose 87 mg/dL (74-106); High Density Lipoprotein 59 mg/dL; Potassium 4.6 mmol/L (3.5-5.1); Sodium Level 138 mmol/L (136-145); Triglycerides 149 mg/dL; Very Low Density Lipoprotein 30 mg/dL (5-40)
== END | disposition home or self-care (01) ==
LOC: BFHLAB 09:32
PROVIDERS: PCP Family Medicine; Visit Provider Family Medicine
DX: Z51.81 Encounter for therapeutic drug level monitoring (principal); I10 Essential (primary) hypertension; E78.5 Hyperlipidemia, unspecified
CPT/HCPCS: 36415; 80053; 80061; 85025

== ENCOUNTER → 2024-12-13 | Outpatient (CLI) | payer BC, SELFPAY ==
--- NOTE | 2024-12-13 08:32 | RAD_ITS ---
PROCEDURE: KNEE 4 OR MORE VIEWS REASON FOR EXAM: Knee pain. TECHNIQUE: 4 view(s) of the right knee COMPARISON: None. FINDINGS: No fracture. No suspicious bone lesion. Normal alignment. No effusion. Soft tissues are unremarkable. Moderate degree of joint space narrowing involving the medial compartment of the knee joint. RAD/Knee 4 or More Views IMPRESSION: DEGENERATIVE OSTEOARTHROSIS. NO ACUTE FINDINGS. Reading Location: [facility]
--- NOTE | 2024-12-13 08:32 | RAD_ITS ---
PROCEDURE: KNEE 4 OR MORE VIEWS REASON FOR EXAM: Bilateral knee pain. TECHNIQUE: 4 view(s) of the left knee COMPARISON: None. FINDINGS: Marked degree of joint space narrowing involving the medial compartment of the knee joint with degenerative spur formation of the distal medial femoral condyle. Mild joint space narrowing at the patellofemoral joint. No fracture. No suspicious bone lesion. Normal alignment. No effusion. Soft tissues are unremarkable. RAD/Knee 4 or More Views IMPRESSION: Marked degree of joint space narrowing involving the medial compartment of the knee joint with degenerative spur formation of the distal medial femoral condyle. Reading Location: [facility]
== END | disposition home or self-care (01) ==
LOC: MTRAD 08:30
PROVIDERS: PCP Family Medicine; Referring Provider Family Medicine; Visit Provider Family Medicine
DX: M25.561 Pain in right knee (principal); M25.562 Pain in left knee
CPT/HCPCS: 73564

== ENCOUNTER → 2025-01-20 | Outpatient (CLI) | payer BC, SELFPAY ==
--- NOTE | 2025-01-20 07:41 | BI_ITS ---
EXAM: SCRN MAMM (CAD)W/BETTY BILAT 01/20/2025 CLINICAL HISTORY: F, Age 74 y/o , SCREENING TECHNIQUE: Bilateral screening digital breast tomosynthesis with 2D and 3D images. Computer aided detection. COMPARISON: Prior exam(s) dated 01/19/2024, 01/01/2023. FINDINGS: TISSUE DENSITY: The breast tissue is composed of scattered area of fibroglandular density. Bilateral Breast Mammographic Findings: No significant masses, calcifications or other abnormalities are identified. BI/SCRN MAMM (CAD)W/BETTY BILAT IMPRESSION: Right Breast: BIRADS 1 NEGATIVE. Left Breast: BIRADS 1 NEGATIVE. OVERALL FINAL ASSESSMENT: BIRADS 1 NEGATIVE. RECOMMENDATION: Routine annual follow-up in 1 Year A letter with findings and recommendations will be mailed to the patient. Reading Location: [id number]
== END | disposition home or self-care (01) ==
LOC: OPBI 07:39
PROVIDERS: PCP Family Medicine; Referring Provider Family Medicine; Visit Provider Family Medicine
DX: Z12.31 Encounter for screening mammogram for malignant neoplasm of breast (principal)
CPT/HCPCS: 77063; 77067

== ENCOUNTER → 2025-07-03 | Outpatient (CLI) | payer MEDICARE, SELFPAY ==
--- NOTE | 2025-07-03 11:49 | RAD_ITS ---
PROCEDURE: HIPS B/L MIN 2 VIEWS W/ PELVIS 07/03/2025 REASON FOR EXAM: LUMBAGO WITH SCIATICA, RIGHT SIDE TECHNIQUE: Procedure Code: [id number] Modality: DX Procedure: HIPS B/L MIN 2 VIEWS W/ PELVIS Laterality: Right COMPARISON: DEXA examination of the lumbar spine dated 07/03/2025 FINDINGS: Bones: Diffuse osteopenia of the bony pelvis and both hips is noted. There are no fractures or dislocations. Joints: Osteoarthritic changes of the SI joints are noted. Osteoarthritic changes of the pubic symphysis is noted. Moderate degenerative osteoarthritic changes of both hips are noted. Soft tissues: Soft tissues are grossly unremarkable. Other: Fallopian tube clips are seen in the pelvis. Phleboliths are seen in the pelvis. RAD/Hips B/L min 2 views w/ Pelvis IMPRESSION: Diffuse osteopenia of the bony pelvis and both hips is noted. Moderate degenerative osteoarthritic changes are seen involving both hips. The re are no fractures or dislocations. Osteoarthritic changes of the SI joints are noted bilaterally. Osteoarthritic changes of the pubic symphysis are noted. Reading Location: [id number]
--- NOTE | 2025-07-03 11:49 | RAD_ITS ---
PROCEDURE: L/S SPINE MIN 4 VIEWS 07/03/2025 REASON FOR EXAM: LUMBAGO WITH SCIATICA, RIGHT SIDE TECHNIQUE: Procedure Code: [id number] Modality: DX Procedure: L/S SPINE MIN 4 VIEWS COMPARISON: None FINDINGS: LUMBAR and SACRUM: Diffuse osteopenia of the lumbar spine, visualized bony pelvis and sacrum are noted. There is no fracture of the sacrum. Osteoarthritic changes are seen involving both SI joints. There is a very subtle dextroscoliosis of the lumbar spine. There are 5 lumbar- type vertebral bodies below last set of paired ribs. The vertebral body heights are within normal limits. There is no spondylolysis. There is no spondylolisthesis. Mild spondylosis is noted. There is disc space narrowing involving all of the disc spaces. There is some bony encroachment on the lower neural foramina. Other findings: Surgical clips are seen in the pelvis presumably from prior fallopian tube surgery. Other: Moderate amount of stool and gas is present throughout the visualized portion of the colon. The right psoas muscle is well outlined. The left psoas muscle and renal outlines are partially obscured by overlying bowel gas and fecal material within the colon. RAD/L/S Spine Min 4 Views IMPRESSION: Mild spondylosis of the lumbar spine. Degenerative disc disease involving the disc spaces. Osteoarthritic changes of the SI joints. Reading Location: [id number]
--- OUTSIDE RECORDS SUMMARY | 2025-07-03 22:10 | XMS RPT_ITS | CCD ---
Author Organization [facility] CliniSyaz Care Team Providers Care Reefer Truck Driver Name Role Phone Dr. Sandi Vogt Primary Care Provider Sin, Dr. Junior Referring Provider JIE Wen Attending Provider Dr. Sandi Vogt Primary Care Provider [phone] Sin, Dr. Junior Referring Provider JIE Wen Attending Provider Sunita Parker Attending Provider Unavailable Sin PEREZ, Dr. Junior Primary Care Provider [phone] Sin PEREZ, Dr. Junior Attending Provider Sin PEREZ, Dr. Junior Referring Provider Sin PEREZ, Dr. Junior Primary Care Provider Sin PEREZ, Dr. Junior Attending Provider Sin PEREZ, Dr. Junior Referring Provider Vinnie, Sherlyn Attending Unavailable Malys, Sandi Primary Care Unavailable Vinnie, Sherlyn Referring Unavailable Vinnie, Sherlyn Attending Unavailable Vinnie, Sherlyn Referring Unavailable Malys, Sandi Primary Care Unavailable Malys, Sandi Referring Unavailable Malys, Sandi Attending Unavailable Malys, Sandi Primary Care Unavailable Malys, Sandi Primary Care Unavailable Malys, Sandi Attending Unavailable Malys, Sandi Primary Care Unavailable Vinnie, Sherlyn Referring Unavailable Jenaro, Kyle Attending Unavailable Malys, Sandi Referring Unavailable Malys, Sandi Attending Unavailable Malys, Sandi Primary Care Unavailable Malys, Sandi Referring Unavailable Malys, Sandi Attending Unavailable Malys, Sandi Primary Care Unavailable Allergies Allergy Classification Reported Allergen(s) Allergy Type Date of Onset Reaction(s) Facility (8 sources) Codeine Drug Allergy 3 Other [facility] Comment on above: Irregular heart beat (9 sources) Penicillins; Translations: [Penicillins] Allergy to substance 3 Unknown, Other [facility] Comment on above: Irregular heart beat (4 sources) cefdinir Drug Allergy 3 Rash [facility] (4 sources) Cephalexin Drug Allergy 3 Rash [facility] (4 sources) traMADol Drug Allergy 3 Nausea [facility] (1 source) cefdinir Drug Allergy 3 [facility] Repository (1 source) Cephalexin Drug Allergy 3 [facility] Repository (1 source) Codeine Drug Allergy 3 [facility] Repository (1 source) traMADol Drug Allergy 3 [facility] Repository Medications Current Medications Medication Drug Class(es) Dates Sig (Normalized) Sig (Original) acetic acid 20 mg/ml otic solution (1 source) Start: 01-22-2023 Acetic Acid Active 4 DRP OTIC THREE TIMES A DAY January 22, 2023 12:00am Bacillus Coagulans (Digestive Advantage Probio-Pre) 400 million cell tablet,chewable (1 source) Start: 01-22-2023 Bacillus Coagulans (Digestive Advantage Probio-Pre) 400 million cell tablet,chewable Active CELL PO January 22, 2023 12:00am calcium ascorbate 500 mg oral tablet (1 source) Start: 01-22-2023 take 500 mg by mouth once daily Ascorbate Calcium (Vitamin C) Active 500 MG PO DAILY January 22, 2023 12:00am cholecalciferol 0.05 mg oral capsule (1 source) Vitamin D Start: 01-22-2023 take 50 ug by mouth once daily Cholecalciferol (Vitamin D3) Active 50 MCG PO DAILY January 22, 2023 12:00am hydroCHLOROthiazide 12.5 mg / lisinopril 10 mg oral tablet (4 sources) Thiazide Diuretic, Angiotensin Converting Enzyme Inhibitor Start: 01-22-2023 Lisinopril-Hydrochl orothiazide 10-12.5 mg tablet Active 1 {tbl} PO DAILY January 22, 2023 12:00am Start: 01-22-2023 take 1 tablet by once daily Lisinopril-Hydrochlorothiazide Active 1 TABLET PO DAILY January 22, 2023 12:00am Hydrocortisone 2.5%/Lidocain e 5% Suppository (Cmpd) [Hydrocortisone 2.5%/Lidocaine 5% Suppository (Compound)] (Hydrocortisone ) suppository (3 sources) Start: 03-11-2023 Hydrocortisone 2.5%/Lidocaine 5% Suppository (Cmpd) [Hydrocortisone 2.5%/Lidocaine 5% Suppository (Compound)] (Hydrocortisone ) suppository Active 0 .Route March 11, 2023 12:00am per rectum BID Start: 03-11-2023 Hydrocortisone 2.5%/Lidocaine 5% Suppository (Cmpd) [Hydrocortisone 2.5%/Lidocaine 5% Suppository (Compound)] (Hydrocortisone ) suppository Active 0 .Route March 10, 2023 11:00pm per rectum BID magnesium oxide 400 mg oral tablet (1 source) Start: 01-22-2023 take 400 mg by mouth once daily Magnesium Oxide Active 400 MG PO DAILY January 22, 2023 12:00am 24 hr metoprolol succinate 25 mg extended release oral tablet (5 sources) beta-Adrenergic Chacho Start: 10-06-2013 take 25 mg by mouth once daily Metoprolol Succinate Active 25 MG PO DAILY October 06, 2013 1:00am omeprazole 40 mg delayed release oral capsule (1 source) Proton Pump Inhibitor Start: 01-22-2023 take 40 mg by mouth once daily Omeprazole Active 40 MG PO DAILY January 22, 2023 12:00am ondansetron 8 mg oral tablet (3 sources) Serotonin-3 Receptor Antagonist Start: 11-29-2022 take 8 mg by mouth every eight hours Ondansetron Hcl Active 8 MG PO Q8H November 29, 2022 1:00am Completed/Discontinued Medications Medication Drug Class(es) Dates Sig (Normalized) Sig (Original) aspirin 81 mg chewable tablet (8 sources) Platelet Aggregation Inhibitor, Nonsteroidal Anti-inflammatory Drug Start: 10-06-2013 End: 01-22-2023 take 1 tablet by mouth once daily Aspirin 81 MG tablet,chewable Discontinued 81 mg PO DAILY@0800 October 06, 2013 1:00am January 22, 2023 8:37am Problems Active Problems Problem Classification Problem Date Documented Date Episodic/Chronic Cardiac dysrhythmias (1 source) Other specified cardiac arrhythmias; Translations: [Other specified cardiac arrhythmias] Onset: 08-30-2024 Chronic Cardiac dysrhythmias (8 sources) Tachycardia; Translations: [Tachycardia, unspecified] 2013 Episodic Noninfectious gastroenteritis (9 sources) Gastroenteritis; Translations: [Noninfective gastroenteritis and colitis, unspecified] 11-29-2022 Episodic Other aftercare (1 source) Encounter for therapeutic drug level monitoring; Translations: [Encounter for therapeutic drug level monitoring] Onset: 12-22-2024 Episodic Other non-traumatic joint disorders (1 source) Pain in right knee; Translations: [Pain in right knee] Onset: 12-26-2024 Episodic Other screening for suspected conditions (not mental disorders or infectious disease) (5 sources) Patient encounter status; Translations: [Encounter for screening for malignant neoplasm of colon] Onset: 01-25-2025 01-22-2023 Episodic Spondylosis; intervertebral disc disorders; other back problems (1 source) Pain in thoracic spine; Translations: [Pain in thoracic spine] Onset: 11-10-2024 Episodic Past or Other Problems Problem Classification Problem Date Documented Da te Episodic/Chronic Nonspecific chest pain (1 source) Chest pain, unspecified; Translations: [Chest pain, unspecified] Onset: 08-10-2024 Episodic Results Test Name Value Interpretation Reference Range Facility Breast imaging reportOrdered By: Maci Kenny on 01-20-2025 Study report [facility] Imaging Services [address] [place] [address] [id number] SCRN MAMM (CAD)W/BETTY BILAT MR#: [id number] Acct: [id number] Name: ROLY ARCEO Rep #: [id number] : 1950 F 74 From: Chandni Kenny MD PCP: Dr. Sandi Vogt DO Status: [facility] Study:SCRN MAMM (CAD)W/BETTY BILAT Date of Exa m: 01/20/25 Exam# [id number] Ordering Dr: Nichelle Vogt sa, DO EXAM: SCRN MAMM (CAD)W/BETTY BILAT 01/20/2025 CLINICAL HISTORY: F, Age 74 y/o , SCREENING TECHNIQUE: Bilateral screening digital breast tomosynthesis with 2D and 3D images. Computeraided detection. COMPARISON: Prior exam(s) dated 01/19/2024, 01/01/2023. FINDINGS: TISSUE DENSITY: The breast tissue is composed of scattered area of fibroglandular density. Bilateral Breast Mammographic Findings: No significant masses, calcifications or other abnormalities are identified. BI/SCRN MAMM (CAD)W/BETTY BILAT IMPRESSION: Right Breast: BIRADS 1 NEGATIVE. Left Breast: BIRADS 1 NEGATIVE. OVERALL FINAL ASSESSMENT: BIRADS 1 NEGATIVE. RECOMMENDATION: Routine annual follow-up in 1 Year A letter with findings and recommendations will be mailed to the patient. Reading Location: [facility] CC: Dr. Sandi Vogt DO ~ Diagnostic Medical Sonographer: Signed [facility] SCRN MAMM (CAD)W/BETTY BILATo n 01-20-2025 SCRN MAMM (CAD)W/BETTY BILAT [facility] Imaging Services [address] [place], [place] [id number] SCRN MAMM (CAD)W/BETTY BILAT MR#: [id number] Acct: [id number] Name: ROLY ARCEO Rep #: [id number] : 1950 F 74 From: Maci Kenny MD PCP: Dr. Sandi Vogt DO Status: [facility] CLI Study: SCRN MAMM (CAD)W/BETTY BILAT Date of Exam: 02/10 Exam# [id number] Ordering Dr: Sandi Vogt DO EXAM: SCRN MAMM (CAD)W/BETTY BILAT 01/20/2025 CLINICAL HISTORY: F, Age 74 y/o , SCREENING TECHNIQUE: Bilateral screening digital breast tomosynthesis with 2D and 3D images. Computer aided detection. COMPARISON: Prior exam(s) dated 01/19/2024, 01/01/2023. FINDINGS: TISSUE DENSITY: The breast tissue is composed of scattered area of fibroglandular density. Bilateral Breast Mammographic Findings: No significant masses, calcifications or other abnormalities are identified. BI/SCRN MAMM (CAD)W/BETTY BILAT IMPRESSION: Right Breast: BIRADS 1 NEGATIVE. Left Breast: BIRADS 1 NEGATIVE. OVERALL FINAL ASSESSMENT: BIRADS 1 NEGATIVE. RECOMMENDATION: Routine annual follow-up in 1 Year A letter with findings and recommendations will be mailed to the patient. Reading Location: [facility] CC: Dr. Sandi Vogt DO Diagnostic Medical Sonographer: Signed Normal [facility] Knee 4 or More Viewson 12-13 Knee 4 or More Views [facility] Imaging Services [address] [place] [address] Knee 4 or More Views MR#: [id number] Acct: [id number] Name: ROLY ARCEO Rep #: [id number] : 1950 F 74 From: Calvin chandler MD PCP: Dr. Sandi Vogt DO Status: REG CLI Study: Knee 4 or More Views Date of Exam: 12/13/24 Exam# [id number] Ordering Dr: Sandi Vogt DO PROCEDURE: KNEE 4 OR MORE VIEWS REASON FOR EXAM: Bilateral knee pain. TECHNIQUE: 4 view(s) of the left knee COMPARISON: None. FINDINGS: Marked degree of joint space narrowing involving the medial compartment of the knee joint with degenerative spur formation of the distal medial femoral condyle. Mild joint space narrowing at the patellofemoral joint. No fracture. No suspicious bone lesion. Normal alignment. No effusion. Soft tissues are unremarkable. RAD/Knee 4 or More Views IMPRESSION: Marked degree of joint space narrowing involving the medial compartment of the knee joint with degenerative spur formation of the distal medial femoral condyle. Reading Location: [id number] CC: Dr. Sandi Vogt DO Diagnostic Medical Sonographer: Signed Normal [facility] Knee 4 or More Views [facility] Imaging Services [address] [place] [address] Knee 4 or More Views MR#: [id number] Acct: [id number] Name: ROLY ARCEO Rep #: [id number] : 1950 F 74 From: Calvin chandler MD PCP: Dr. Sandi Vogt DO Status: REG CLI Study: Knee 4 or More Views Date of Exam: 12/13/24 Exam# [id number] Ordering Dr: Sandi Vogt DO PROCEDURE: KNEE 4 OR MORE VIEWS REASON FOR EXAM: Knee pain. TECHNIQUE: 4 view(s) of the right knee COMPARISON: None. FINDINGS: No fracture. No suspicious bone lesion. Normal alignment. No effusion. Soft tissues are unremarkable. Moderate degree of joint space narrowing involving the medial compartment of the knee joint. RAD/Knee 4 or More Views IMPRESSION: DEGENERATIVE OSTEOARTHROSIS. NO ACUTE FINDINGS. Reading Location: [facility] CC: Dr. Sandi Vogt DO Diagnostic Medical Sonographer: Signed Normal [facility] Absolute neutrophil countOrd ered By: Sandi Vogt on 12-12-2024 Neutrophils (Bld) [#/Vol] 4.8 10*3/uL 2.0-7.7 [facility] Albumin to globulin ratioOrd ered By: Sandi Vogt on 12-12-2024 Albumin/Globulin [Mass ratio] 0.9 {ratio} 0.9-2.4 [facility] Basophil percentageOrdered B y: Sandi Vogt on 12-12-2024 Basophils/100 WBC (Bld) 0.7 % 0-1 [facility] Bilirubin, totalOrdered By: Sandi Vogt on 12-12-2024 Bilirubin [Mass/Vol] 0.50 mg/dL 0.20-1.00 [facility] Comment on above: For patients on eltr ombopag therapy, use of Dimension [place] TBIL is not recommended. Blood urea nitrogen (BUN)/cr eatinine ratioOrdered By: Sandi Vogt on 12-12-2024 Urea nitrogen/Creatinine [Mass ratio] 20.4 mg/mg High 10-20 [facility] CBC W/Diff, Automatedon 11-20 Absolute Lymph 1.74 X10 3/uL Normal 0.83-4.51 [facility] Comment on above: Performed By: #### L 500.4100, L500.4050, L100.0100 #### [facility] [address] [place], [address] Absolute Neut 4.8 X10 3/uL Normal 2.0-7.7 [facility] Comment on above: Performed By: #### L 500.4100, L500.4050, L100.0100 #### [facility] [address] [place], [address] Basophils/100 WBC (Bld) 0.7 % Normal 0-1 [facility] Comment on above: Performed By: #### L 500.4100, L500.4050, L100.0100 #### [facility] [address] [place], [address] Eosinophils/100 WBC (Bld) 1.1 % Normal 0-5 [facility] Comment on above: Performed By: #### L 500.4100, L500.4050, L100.0100 #### [facility] [address] [place], [address] Erythrocyte distribution width (RBC) [Ratio] 13.2 % Normal 11.6-14.6 [facility] Comment on above: Performed By: #### L 500.4100, L500.4050, L100.0100 #### [facility] [address] [place], [address] Hematocrit (Bld) [Volume fraction] 43.6 % Normal 37-47 [facility] Comment on above: Performed By: #### L 500.4100, L500.4050, L100.0100 #### [facility] [address] [place], [address] Hemoglobin (Bld) [Mass/Vol] 14.2 g/dL Normal 12.0-15.0 [facility] Comment on above: Performed By: #### L 500.4100, L500.4050, L100.0100 #### [facility] [address] [place], [address] IG% 0.300 Normal 0.0-0.9 [facility] Comment on above: Result Comment: IG% - Immature Granulocytes (promyelocytes, myelocytes and metamyelocytes) > 1% indicates that a LEFT SHIFT is Present. Performed By: #### L 500.4100, L500.4050, L100.0100 #### [facility] [address] [place], [address] Lymphocytes/100 WBC (Bld) 24.4 % Normal 19-41 [facility] Comment on above: Performed By: #### L 500.4100, L500.4050, L100.0100 #### [facility] [address] [place], [address] MCH (RBC) [Entitic mass] 29.8 pg Normal 27.0-32.0 [facility] Comment on above: Performed By: #### L 500.4100, L500.4050, L100.0100 #### [facility] [address] [place], [address] MCHC (RBC) [Mass/Vol] 32.6 g/dL Normal 32-36 [facility] Comment on above: Performed By: #### L 500.4100, L500.4050, L100.0100 #### [facility] [address] [place], [address] MCV (RBC) [Entitic vol] 91.4 fL Normal 81-99 [facility] Comment on above: Performed By: #### L 500.4100, L500.4050, L100.0100 #### [facility] [address] [place], [address] Monocytes/100 WBC (Bld) 6.6 % Normal 0-10 [facility] Comment on above: Performed By: #### L 500.4100, L500.4050, L100.0100 #### [facility] [address] [place], [address] Neutrophils/100 WBC (Bld) 66.9 % Normal 47-70 [facility] Comment on above: Performed By: #### L 500.4100, L500.4050, L100.0100 #### [facility] [address] [place], [address] Nucleated RBC (Bld) [#/Vol] 0 10*3/uL Normal 0-5 [facility] Comment on above: Performed By: #### L 500.4100, L500.4050, L100.0100 #### [facility] [address] [place], [address] Platelet mean volume (Bld) [Entitic vol] 10.6 fL Normal 6.2-12.0 [facility] Comment on above: Performed By: #### L 500.4100, L500.4050, L100.0100 #### [facility] [address] [place], [address] Platelets (Bld) [#/Vol] 419 10*3/uL Normal 150-450 [facility] Comment on above: Performed By: #### L 500.4100, L500.4050, L100.0100 #### [facility] [address] [place], [address] RBC (Bld) [#/Vol] 4.77 10*6/uL Normal 4.2-5.[address] [facility] Comment on above: Performed By: #### L 500.4100, L500.4050, L100.0100 #### [facility] [address] [place], [address] RDW SD 45.2 fl High 35.1-43.9 [facility] Comment on above: Performed By: #### L 500.4100, L500.4050, L100.0100 #### [facility] [address] [place], [address] WBC (Bld) [#/Vol] 7.1 10*3/uL Normal 4.4-11.0 [facility] Comment on above: Performed By: #### L 500.4100, L500.4050, L100.0100 #### [facility] [address] [place], [address] Carbon dioxide measurementOr dered By: Sandi Vogt on 12-12-2024 CO2 [Moles/Vol] 30.0 mmol/L 21.0-32.0 [facility] Chloride measurementOrdered By: Sandi Vogt on 12-12-2024 Chloride [Moles/Vol] 102 mmol/L 98-107 [facility] Comprehensive Metabolic Prof ilon 12-12-2024 Albumin [Mass/Vol] 3.7 g/dL Normal 3.2-5.0 [facility] Comment on above: Performed By: #### L 500.4100, L500.4050, L100.0100 #### [facility] [address] [place], [address] Albumin/Globulin [Mass ratio] 0.9 {ratio} Normal 0.9-2.4 [facility] Comment on above: Performed By: #### L 500.4100, L500.4050, L100.0100 #### [facility] [address] [place], [address] ALK P 97 U/L Normal 45-117 [facility] Comment on above: Performed By: #### L 500.4100, L500.4050, L100.0100 #### [facility] [address] [place], [address] ALT [Catalytic activity/Vol] 30 U/L Normal 13-56 [facility] Comment on above: Performed By: #### L 500.4100, L500.4050, L100.0100 #### [facility] [address] [place], [address] AST [Catalytic activity/Vol] 24 U/L Normal 15-37 [facility] Comment on above: Performed By: #### L 500.4100, L500.4050, L100.0100 #### [facility] [address] [place], [address] Bilirubin [Mass/Vol] 0.50 mg/dL Normal 0.20-1.00 [facility] Comment on above: Result Comment: For patients on eltrombopag therapy, use of Dimension [place] TBIL is not recommended. Performed By: #### L 500.4100, L500.4050, L100.0100 #### [facility] [address] [place], [address] BUN/CRE 20.4 RATIO High 10-20 [facility] Comment on above: Performed By: #### L 500.4100, L500.4050, L100.0100 #### [facility] [address] [place], [address] CA,Total 9.3 mg/dL Normal 8.5-10.1 [facility] Comment on above: Performed By: #### L 500.4100, L500.4050, L100.0100 #### [facility] [address] [place], [address] Chloride [Moles/Vol] 102 mmol/L Normal 98-107 [facility] Comment on above: Performed By: #### L 500.4100, L500.4050, L100.0100 #### [facility] [address] [place], [address] CO2 [Moles/Vol] 30.0 mmol/L Normal 21.0-32.0 [facility] Comment on above: Performed By: #### L 500.4100, L500.4050, L100.0100 #### [facility] [address] [place], [address] Creatinine [Mass/Vol] 0.88 mg/dL Normal 0.55-1.02 [facility] Comment on above: Result Comment: The validity of the calculated GFR GFRAA in patients over 70 years has not been determined. Clinical correlation is essential. Performed By: #### L 500.4100, L500.4050, L100.0100 #### [facility] [address] [place], [address] EST GFR - AA 80 mL/min Normal >60 [facility] Comment on above: Result Comment: Afri can Syrian GFR Calc Performed By: #### L 500.4100, L500.4050, L100.0100 #### [facility] [address] [place], [address] GAP 6 Normal 5-15 [facility] Comment on above: Performed By: #### L 500.4100, L500.4050, L100.0100 #### [facility] [address] [place], [address] GFR/1.73 sq M.predicted among non-blacks MDRD (S/P/Bld) [Vol rate/Area] 66 mL/min/{1.73_m2} Normal >60 [facility] Comment on above: Result Comment: Non- GFR Calc Performed By: #### L 500.4100, L500.4050, L100.0100 #### [facility] [address] [place], [address] Globulin (S) [Mass/Vol] 4.3 g/dL High 2.2-4.2 [facility] Comment on above: Performed By: #### L 500.4100, L500.4050, L100.0100 #### [facility] [address] [place], [address] Glucose [Mass/Vol] 87 mg/dL Normal 74-106 [facility] Comment on above: Performed By: #### L 500.4100, L500.4050, L100.0100 #### [facility] [address] [place], [address] Potassium [Moles/Vol] 4.6 mmol/L Normal 3.5-5.1 [facility] Comment on above: Performed By: #### L 500.4100, L500.4050, L100.0100 #### [facility] [address] [place], [address] Sodium [Moles/Vol] 138 mmol/L Normal 136-145 [facility] Comment on above: Performed By: #### L 500.4100, L500.4050, L100.0100 #### [facility] [address] [place], [address] T PROT 8.0 g/dL Normal 6.4-8.2 [facility] Comment on above: Performed By: #### L 500.4100, L500.4050, L100.0100 #### [facility] [address] [place], [address] Urea nitrogen [Mass/Vol] 18 mg/dL Normal 7-18 [facility] Comment on above: Performed By: #### L 500.4100, L500.4050, L100.0100 #### [facility] [address] [place], [address] Eosinophil percentageOrdered By: Sandi Vogt on 12-12-2024 Eosinophils/100 WBC (Bld) 1.1 % 0-5 [facility] Erythrocyte distribution wid th ratioOrdered By: Sandi Vogt on 12-12-2024 Erythrocyte distribution width (RBC) [Ratio] 13.2 % 11.6-14.6 [facility] Erythrocyte distribution wid th standard deviationOrdered By: Sandi Vogt on 12-12-2024 Erythrocyte distribution width (RBC) [Entitic vol] 45.2 fL High 35.1-43.9 [facility] Estimated glomerular filtrat ion rate (GFR) AmericanOrdered By: Sandi Vogt on 12-12-2024 Estimated GFR (MDRD) Amer 80 mL/min >60 [facility] Comment on above: GFR Calc Glomerular filtration rate ( GFR) estimationOrdered By: Sandi Vogt on 12-12-2024 Estimated GFR (MDRD) Non-Af Amer 66 mL/min >60 [facility] Comment on above: Non- GFR Calc Glucose measurementOrdered B y: Sandi Vogt on 12-12-2024 Glucose [Mass/Vol] 87 mg/dL 74-106 [facility] Hematocrit Auto (Bld) [Volum e fraction]Ordered By: Sandi Vogt on 12-12-2024 Hematocrit (Bld) [Volume fraction] 43.6 % 37-47 [facility] Hemoglobin measurementOrdere d By: Sandi Vogt on 12-12-2024 Hemoglobin (Bld) [Mass/Vol] 14.2 g/dL 12.0-15.0 [facility] High density lipoprotein (HD L) measurementOrdered By: Sandi Vogt on 12-12-2024 Cholesterol in HDL [Mass/Vol] 59 mg/dL >40 [facility] Comment on above: The drugs N-Acetylcy steine and Metamizole may falsely depress this assay. Reference Range HDL <40 mg/dL Low HDL Cholesterol HDL >or= 60 mg/dL High HDL Cholesterol Immature granulocytes/100 WB C Auto (Bld)Ordered By: Sandi Vogt on 12-12-2024 Immature granulocytes/100 WBC (Bld) 0.300 % 0.0-0.9 [facility] Comment on above: IG% - Immature Granu locytes (promyelocytes, myelocytes and metamyelocytes) > 1% indicates that a LEFT SHIFT is Present. Laboratory - Chemistry and C hemistry - challengeOrdered By: Sandi Vogt on 12-12-2024 AST [Catalytic activity/Vol] 24 U/L 15-37 [facility] Lipid Profileon 12-12-2024 Cholesterol [Mass/Vol] 241 mg/dL High [address] [facility] Comment on above: Result Comment: <200 mg/dL Desirable 200-240 mg/dL Borderline >240 mg/dL High Risk Performed By: #### L 500.4100, L500.4050, L100.0100 #### [facility] [address] [place], [address] Cholesterol in HDL [Mass/Vol] 59 mg/dL Normal [facility] Comment on above: Result Comment: The drugs N-Acetylcysteine and Metamizole may falsely depress this assay. Reference Range HDL <40 mg/dL Low HDL Cholesterol HDL >or= 60 mg/dL High HDL Cholesterol Performed By: #### L 500.4100, L500.4050, L100.0100 #### [facility] [address] [place], [address] Cholesterol in LDL [Mass/Vol] 152 mg/dL High 0-130 [facility] Comment on above: Performed By: #### L 500.4100, L500.4050, L100.0100 #### [facility] [address] [place], [address] Cholesterol in VLDL [Mass/Vol] 30 mg/dL Normal 5-40 [facility] Comment on above: Performed By: #### L 500.4100, L500.4050, L100.0100 #### [facility] [address] [place], [address] Triglyceride [Mass/Vol] 149 mg/dL Normal [facility] Comment on above: Result Comment: The drugs N-Acetylcysteine and Metamizole may falsely depress this assay. Serum Triglycerides Reference Interval Normal <150 mg/dL Borderline high 150 - 199 mg/dL High 200 - 499 mg/dL Very High > or = 500 mg/dL Performed By: #### L 500.4100, L500.4050, L100.0100 #### [facility] [place], [address] Low density lipoprotein (LDL ) cholesterol measurementOrdered By: Sandi Vogt on 12-12-2024 Cholesterol in LDL [Mass/Vol] 152 mg/dL High 0-130 [facility] Lymphocytes Auto (Unsp spec) [#/Vol]Ordered By: Sandi Vogt on 12-12-2024 Lymphocytes (Bld) [#/Vol] 1.74 10*3/uL 0.83-4.51 [facility] Lymphocytes/100 WBC Auto (Un sp spec)Ordered By: Sandi Vogt on 12-12-2024 Lymphocytes/100 WBC (Bld) 24.4 % 19-41 [facility] MCV (mean corpuscular volume ) determinationOrdered By: Sandi Vogt on 12-12-2024 MCV (RBC) [Entitic vol] 91.4 fL 81-99 [facility] Mean corpuscular hemoglobin (MCH) determinationOrdered By: Sandi Vogt on 12-12-2024 MCH (RBC) [Entitic mass] 29.8 pg 27.0-32.0 [facility] Mean corpuscular hemoglobin concentration (MCHC) determinationOrdered By: Sandi Vogt on 12-12-2024 MCHC (RBC) [Mass/Vol] 32.6 g/dL 32-36 [facility] Mean platelet volume determi nationOrdered By: Sandi Vogt on 12-12-2024 Platelet mean volume (Bld) [Entitic vol] 10.6 fL 6.2-12.0 [facility] Monocyte percentageOrdered B y: Sandi Vogt on 12-12-2024 Monocytes/100 WBC (Bld) 6.6 % 0-10 [facility] Neutrophil percentageOrdered By: Sandi Vogt on 12-12-2024 Neutrophils/100 WBC (Bld) 66.9 % 47-70 [facility] Nucleated red blood cell per centageOrdered By: Sandi Vogt on 12-12-2024 Nucleated RBC/100 WBC (Bld) [Ratio] 0 % 0-5 [facility] Platelet countOrdered By: Nichelle Vogt on 12-12-2024 Platelets (Bld) [#/Vol] 419 10*3/uL 150-450 [facility] Potassium measurementOrdered By: Sandi Vogt on 12-12-2024 Potassium [Moles/Vol] 4.6 mmol/L 3.5-5.1 [facility] RBC Auto (Bld) [#/Vol]Ordere d By: Sandi Vogt on 12-12-2024 RBC (Bld) [#/Vol] 4.77 10*6/uL 4.2-5.[address] [facility] Serum anion gap measurementO rdered By: Sandi Vogt on 12-12-2024 Anion gap [Moles/Vol] 6 mmol/L 5-15 [facility] Serum globulin measurementOr dered By: Sandi Vogt on 12-12-2024 Globulin (S) [Mass/Vol] 4.3 g/dL High 2.2-4.2 [facility] Serum or plasma alanine schaefr otransferase (ALT) measurementOrdered By: Sandi Vogt on 12-12-2024 ALT [Catalytic activity/Vol] 30 U/L 13-56 [facility] Serum or plasma albumin tyrell urement (mass/volume)Ordered By: Sandi Vogt on 12-12-2024 Albumin [Mass/Vol] 3.7 g/dL 3.2-5.0 [facility] Serum or plasma alkaline ceci sphatase measurementOrdered By: Sandi Vogt on 12-12-2024 ALP [Catalytic activity/Vol] 97 U/L 45-117 [facility] Serum or plasma calcium tyrell urement (mass/volume)Ordered By: Sandi Vogt on 12-12-2024 Calcium [Mass/Vol] 9.3 mg/dL 8.5-10.1 [facility] Serum or plasma cholesterol measurement (mass/volume)Ordered By: Sandi Vogt on 12-12-2024 Cholesterol [Mass/Vol] 241 mg/dL High <[address] [facility] Comment on above: <200 mg/dL Desirable 200-240 mg/dL Borderline >240 mg/dL High Risk Serum or plasma creatinine m easurement (mass/volume)Ordered By: Sandi Vogt on 12-12-2024 Creatinine [Mass/Vol] 0.88 mg/dL 0.55-1.02 [facility] Comment on above: The validity of the calculated GFR & GFRAA in patients over 70 years has not been determined. Clinical correlation is essential. Serum or plasma urea nitroge n measurement (mass/volume)Ordered By: Sandi Vogt on 12-12-2024 Urea nitrogen [Mass/Vol] 18 mg/dL 7-18 [facility] Sodium levelOrdered By: Sandi Vogt on 12-12-2024 Sodium [Moles/Vol] 138 mmol/L 136-145 [facility] Total proteinOrdered By: Lena Vogt on 12-12-2024 Protein [Mass/Vol] 8.0 g/dL 6.4-8.2 [facility] Triglycerides measurementOrd ered By: Sandi Vogt on 12-12-2024 Triglyceride [Mass/Vol] 149 mg/dL <199 [facility] Comment on above: The drugs N-Acetylcy steine and Metamizole may falsely depress this assay.Serum Triglycerides Reference Interval Normal <150 mg/dL Borderline high 150 - 199 mg/dL High 200 - 499 mg/dL Very High > or = 500 mg/dL Very low density lipoprotein (VLDL) cholesterol measurementOrdered By: Sandi Vogt on 12-12-2024 VLDL Cholesterol 30 mg/dL 5-40 [facility] White blood cell (WBC) count Ordered By: Sandi Vogt on 12-12-2024 WBC (Bld) [#/Vol] 7.1 10*3/uL 4.4-11.0 [facility] Thoracic Spine 2 Viewson Thoracic Spine 2 Views [facility] [address] [place], [place] [id number] Thoracic Spine 2 Views MR#: [id number] Acct: [id number] Name: ROLY ARCEO Rep #: [id number] : 1950 F 73 From: Everton Delaney MD PCP: Dr. Sandi Vogt DO Status: REG CLI Study: Thoracic Spine 2 Views Date of Exam: 10/14/24 Exam# [id number] Ordering Dr: Sandi Vogt DO -[id number] EXAM: XR THORACIC SPINE, 2 VIEWS CLINICAL INDICATION: Pain in thoracic spine TECHNIQUE: Frontal and lateral views of the thoracic spine. COMPARISON: No relevant prior studies available. FINDINGS: VERTEBRAE: Unremarkable. Preserved vertebral body height. No fracture. No spondylolisthesis. Preservation of the normal thoracic kyphosis. No significant facet arthropathy. DISC SPACES: Mild degenerative changes of the intervertebral discs. RAD/Thoracic Spine 2 Views IMPRESSION: 1. No acute injuries identified involving the thoracic spine. 2. Mild degenerative disc disease. Electronically Signed: Everton Delaney MD at 16:33 EST , CC: Dr. Sandi Vogt DO Diagnostic Medical Sonographer: Signed Normal [facility] BNP,B-Type NATRIURETIC PEPTI Melisa 07-19-2024 Natriuretic peptide B (Bld) [Mass/Vol] 20.9 pg/mL Normal 0-100 [facility] Comment on above: Performed By: #### L 300.8000, L503.6620, L100.0100, L500.4050, L501.4020 #### [facility] [address] [place], [place], [id number] CBC W/Diff, Automatedon 10-0 Absolute Lymph 1.79 X10 3/uL Normal 0.83-4.51 [facility] Comment on above: Performed By: #### L 300.8000, L503.6620, L100.0100, L500.4050, L501.4020 #### [facility] [address] [place], [address] Absolute Neut 4.5 X10 3/uL Normal 2.0-7.7 [facility] Comment on above: Performed By: #### L 300.8000, L503.6620, L100.0100, L500.4050, L501.4020 #### [facility] [address] [place], [address] Basophils/100 WBC (Bld) 0.6 % Normal 0-1 [facility] Comment on above: Performed By: #### L 300.8000, L503.6620, L100.0100, L500.4050, L501.4020 #### [facility] [address] [place], [address] Eosinophils/100 WBC (Bld) 1.7 % Normal 0-5 [facility] Comment on above: Performed By: #### L 300.8000, L503.6620, L100.0100, L500.4050, L501.4020 #### [facility] [address] [place], [address] Erythrocyte distribution width (RBC) [Ratio] 13.2 % Normal 11.6-14.6 [facility] Comment on above: Performed By: #### L 300.8000, L503.6620, L100.0100, L500.4050, L501.4020 #### [facility] [address] [place], [address] Hematocrit (Bld) [Volume fraction] 40.2 % Normal 37-47 [facility] Comment on above: Performed By: #### L 300.8000, L503.6620, L100.0100, L500.4050, L501.4020 #### [facility] [address] [place], [address] Hemoglobin (Bld) [Mass/Vol] 13.1 g/dL Normal 12.0-15.0 [facility] Comment on above: Performed By: #### L 300.8000, L503.6620, L100.0100, L500.4050, L501.4020 #### [facility] [address] [place], [address] IG% 0.300 Normal 0.0-0.9 [facility] Comment on above: Result Comment: IG% - Immature Granulocytes (promyelocytes, myelocytes and metamyelocytes) > 1% indicates that a LEFT SHIFT is Present. Performed By: #### L 300.8000, L503.6620, L100.0100, L500.4050, L501.4020 #### [facility] [address] [place], [address] Lymphocytes/100 WBC (Bld) 25.6 % Normal 19-41 [facility] Comment on above: Performed By: #### L 300.8000, L503.6620, L100.0100, L500.4050, L501.4020 #### [facility] [address] [place], [address] MCH (RBC) [Entitic mass] 29.1 pg Normal 27.0-32.0 [facility] Comment on above: Performed By: #### L 300.8000, L503.6620, L100.0100, L500.4050, L501.4020 #### [facility] [address] [place], [address] MCHC (RBC) [Mass/Vol] 32.6 g/dL Normal 32-36 [facility] Comment on above: Performed By: #### L 300.8000, L503.6620, L100.0100, L500.4050, L501.4020 #### [facility] [address] [place], [address] MCV (RBC) [Entitic vol] 89.3 fL Normal 81-99 [facility] Comment on above: Performed By: #### L 300.8000, L503.6620, L100.0100, L500.4050, L501.4020 #### [facility] [address] [place], [address] Monocytes/100 WBC (Bld) 8.0 % Normal 0-10 [facility] Comment on above: Performed By: #### L 300.8000, L503.6620, L100.0100, L500.4050, L501.4020 #### [facility] [address] [place], [address] Neutrophils/100 WBC (Bld) 63.8 % Normal 47-70 [facility] Comment on above: Performed By: #### L 300.8000, L503.6620, L100.0100, L500.4050, L501.4020 #### [facility] [address] [place], [address] Nucleated RBC (Bld) [#/Vol] 0 10*3/uL Normal 0-5 [facility] Comment on above: Performed By: #### L 300.8000, L503.6620, L100.0100, L500.4050, L501.4020 #### [facility] [address] [place], [address] Platelet mean volume (Bld) [Entitic vol] 9.9 fL Normal 6.2-12.0 [facility] Comment on above: Performed By: #### L 300.8000, L503.6620, L100.0100, L500.4050, L501.4020 #### [facility] [address] [place], [address] Platelets (Bld) [#/Vol] 391 10*3/uL Normal 150-450 [facility] Comment on above: Performed By: #### L 300.8000, L503.6620, L100.0100, L500.4050, L501.4020 #### [facility] [address] [place], [address] RBC (Bld) [#/Vol] 4.50 10*6/uL Normal 4.2-5.[address] [facility] Comment on above: Performed By: #### L 300.8000, L503.6620, L100.0100, L500.4050, L501.4020 #### [facility] [address] [place], [address] RDW SD 43.3 fl Normal 35.1-43.9 [facility] Comment on above: Performed By: #### L 300.8000, L503.6620, L100.0100, L500.4050, L501.4020 #### [facility] [address] [place], [address] WBC (Bld) [#/Vol] 7.0 10*3/uL Normal 4.4-11.0 [facility] Comment on above: Performed By: #### L 300.8000, L503.6620, L100.0100, L500.4050, L501.4020 #### [facility] [address] [place], [address] [facility] Albumin [Mass/Vol] 3.6 g/dL Normal 3.2-5.0 [facility] Comment on above: Order Comment: 1 Performed By: #### L 300.8000, L503.6620, L100.0100, L500.4050, L501.4020 #### [facility] [address] [place], [address] Albumin/Globulin [Mass ratio] 0.8 {ratio} Low 0.9-2.4 [facility] Comment on above: Order Comment: 1 Performed By: #### L 300.8000, L503.6620, L100.0100, L500.4050, L501.4020 #### [facility] [address] [place], [address] ALK P 102 U/L Normal 45-117 [facility] Comment on above: Order Comment: 1 Performed By: #### L 300.8000, L503.6620, L100.0100, L500.4050, L501.4020 #### [facility] [address] [place], [address] ALT [Catalytic activity/Vol] 31 U/L Normal 13-56 [facility] Comment on above: Order Comment: 1 Performed By: #### L 300.8000, L503.6620, L100.0100, L500.4050, L501.4020 #### [facility] [address] [place], [address] AST [Catalytic activity/Vol] 30 U/L Normal 15-37 [facility] Comment on above: Order Comment: 1 Performed By: #### L 300.8000, L503.6620, L100.0100, L500.4050, L501.4020 #### [facility] [address] [place], [address] Bilirubin [Mass/Vol] 0.50 mg/dL Normal 0.20-1.00 [facility] Comment on above: Order Comment: 1 Result Comment: For patients on eltrombopag therapy, use of Dimension [place] TBIL is not recommended. Performed By: #### L 300.8000, L503.6620, L100.0100, L500.4050, L501.4020 #### [facility] [address] [place], [address] BUN/CRE 15.1 RATIO Normal 10-20 [facility] Comment on above: Order Comment: 1 Performed By: #### L 300.8000, L503.6620, L100.0100, L500.4050, L501.4020 #### [facility] [address] [place], [address] CA,Total 9.5 mg/dL Normal 8.5-10.1 [facility] Comment on above: Order Comment: 1 Performed By: #### L 300.8000, L503.6620, L100.0100, L500.4050, L501.4020 #### [facility] [address] [place], [address] Chloride [Moles/Vol] 105 mmol/L Normal 98-107 [facility] Comment on above: Order Comment: 1 Performed By: #### L 300.8000, L503.6620, L100.0100, L500.4050, L501.4020 #### [facility] [address] [place], [address] CO2 [Moles/Vol] 29.0 mmol/L Normal 21.0-32.0 [facility] Comment on above: Order Comment: 1 Performed By: #### L 300.8000, L503.6620, L100.0100, L500.4050, L501.4020 #### [facility] [address] [place], [address] Creatinine [Mass/Vol] 0.86 mg/dL Normal 0.55-1.02 [facility] Comment on above: Order Comment: 1 Result Comment: The validity of the calculated GFR GFRAA in patients over 70 years has not been determined. Clinical correlation is essential. Performed By: #### L 300.8000, L503.6620, L100.0100, L500.4050, L501.4020 #### [facility] [address] [place], [address] EST GFR - AA 83 mL/min Normal >60 [facility] Comment on above: Order Comment: 1 Result Comment: Afri can Syrian GFR Calc Performed By: #### L 300.8000, L503.6620, L100.0100, L500.4050, L501.4020 #### [facility] [address] [place], [address] GAP 4 Low 5-15 [facility] Comment on above: Order Comment: 1 Performed By: #### L 300.8000, L503.6620, L100.0100, L500.4050, L501.4020 #### [facility] [address] [place], [address] GFR/1.73 sq M.predicted among non-blacks MDRD (S/P/Bld) [Vol rate/Area] 68 mL/min/{1.73_m2} Normal >60 [facility] Comment on above: Order Comment: 1 Result Comment: Non- GFR Calc Performed By: #### L 300.8000, L503.6620, L100.0100, L500.4050, L501.4020 #### [facility] [address] [place], [address] Globulin (S) [Mass/Vol] 4.3 g/dL High 2.2-4.2 [facility] Comment on above: Order Comment: 1 Performed By: #### L 300.8000, L503.6620, L100.0100, L500.4050, L501.4020 #### [facility] [address] [place], [address] Glucose [Mass/Vol] 99 mg/dL Normal 74-106 [facility] Comment on above: Order Comment: 1 Performed By: #### L 300.8000, L503.6620, L100.0100, L500.4050, L501.4020 #### [facility] [address] [place], [address] Potassium [Moles/Vol] 3.7 mmol/L Normal 3.5-5.1 [facility] Comment on above: Order Comment: 1 Performed By: #### L 300.8000, L503.6620, L100.0100, L500.4050, L501.4020 #### [facility] [address] [place], [address] Sodium [Moles/Vol] 138 mmol/L Normal 136-145 [facility] Comment on above: Order Comment: 1 Performed By: #### L 300.8000, L503.6620, L100.0100, L500.4050, L501.4020 #### [facility] [address] [place], [address] T PROT 7.9 g/dL Normal 6.4-8.2 [facility] Comment on above: Order Comment: 1 Performed By: #### L 300.8000, L503.6620, L100.0100, L500.4050, L501.4020 #### [facility] [address] [place], [address] Urea nitrogen [Mass/Vol] 13 mg/dL Normal 7-18 [facility] Comment on above: Order Comment: 1 Performed By: #### L 300.8000, L503.6620, L100.0100, L500.4050, L501.4020 #### [facility] [address] [place], [address] D-Dimer Quantitative (DVT/PE )on 07-19-2024 D-DIMER QUANT 0.82 FEU/ug/m Invalid Interpretation Code 0.27-0.49 [facility] Comment on above: Order Comment: LEFT MESSAGE TO RETURN CALL FOR CRITICAL RESULT. 1316 Result Comment: D-Di garett ELEVATED (>0.49): Additional studies and clinical assessments are indicated to conclude diagnosis of: Deep Vein Thrombosis (DVT) or Pulmonary Embolism (PE) Performed By: #### L 300.8000, L503.6620, L100.0100, L500.4050, L501.4020 #### [facility] [address] [place], [address] L501.4020on 07-19-2024 TROPONIN-I HS 6 pg/mL Normal 3.0-54.0 [facility] Comment on above: Order Comment: 1 Result Comment: Plea se Note: New Test Units and Gender Specific Reference Ranges. For more information see Policy Stat Procedure [place] High Sensitivity Troponin (TNIH) and attachments. Performed By: #### L 300.8000, L503.6620, L100.0100, L500.4050, L501.4020 #### [facility] [address] [place], [address] Absolute lymphocyte countOrd ered By: Dr. Vogt on 12-09-2022 Lymphocytes Auto (Unsp spec) [#/Vol] 1.69 10*3/uL 0.83-4.51 [facility] Basophil percentageOrdered B y: Dr. Vogt on 12-09-2022 Basophils/100 WBC (Bld) 0.8 % 0-1 [facility] Bilirubin [Mass/Vol] 0.30 mg/dL 0.20-1.00 [facility] Comment on above: For patients on eltr ombopag therapy, use of Dimension [place] TBIL is not recommended. Chloride [Moles/Vol] 105 mmol/L 98-107 [facility] Cholesterol [Mass/Vol] 225 mg/dL <[address] [facility] Comment on above: <200 mg/dL Desirable 200-240 mg/dL Borderline >240 mg/dL High Risk Eosinophils/100 WBC (Bld) 1.7 % 0-5 [facility] Glucose [Mass/Vol] 105 mg/dL 74-106 [facility] Comment on above: Fasting Glucose resu lt from 100 to 125 mg/dL suggests IMPAIRED HOMEOSTASIS per A.D.A. criteria. Neutrophils (Bld) [#/Vol] 4.4 10*3/uL 2.0-7.7 [facility] Neutrophils/100 WBC (Bld) 65.7 % 47-70 [facility] Potassium [Moles/Vol] 4.1 mmol/L 3.5-5.1 [facility] Protein [Mass/Vol] 8.2 g/dL 6.4-8.2 [facility] Sodium [Moles/Vol] 140 mmol/L 136-145 [facility] Triglyceride [Mass/Vol] 130 mg/dL <199 [facility] Comment on above: The drugs N-Acetylcy steine and Metamizole may falsely depress this assay.Serum Triglycerides Reference Interval Normal <150 mg/dL Borderline high 150 - 199 mg/dL High 200 - 499 mg/dL Very High > or = 500 mg/dL WBC (Bld) [#/Vol] 6.7 10*3/uL 4.4-11.0 [facility] Blood erythrocytes count (nu mber/volume)Ordered By: Dr. Vogt on 12-09-2022 RBC (Bld) [#/Vol] 4.58 10*6/uL 4.2-5.[address] [facility] Blood hemoglobin measurement (mass/volume)Ordered By: Dr. Vogt on 12-09-2022 Hemoglobin (Bld) [Mass/Vol] 13.6 g/dL 12.0-15.0 [facility] Blood lymphocytes/100 leukoc ytesOrdered By: Dr. Vogt on 12-09-2022 Lymphocytes/100 WBC (Bld) 25.4 % 19-41 [facility] Blood monocytes/100 leukocyt esOrdered By: Dr. Vogt on 12-09-2022 Monocytes/100 WBC (Bld) 6.2 % 0-10 [facility] Blood platelet mean volumeOr dered By: Dr. Vogt on 12-09-2022 Platelet mean volume (Bld) [Entitic vol] 11.2 fL 6.2-12.0 [facility] Determination of erythrocyte mean corpuscular volume (MCV)Ordered By: Dr. Vogt on 12-09-2022 MCV (RBC) [Entitic vol] 91.3 fL 81-99 [facility] Hematocrit Auto (Bld) [Volum e fraction]Ordered By: Dr. Vogt on 12-09-2022 Hematocrit (Bld) [Volume fraction] 41.8 % 37-47 [facility] - Chemistry and C hemistry - challengeOrdered By: Dr. Vogt on 12-09-2022 ALP [Catalytic activity/Vol] 85 U/L 45-117 [facility] ALT [Catalytic activity/Vol] 28 U/L 13-56 [facility] CO2 [Moles/Vol] 30.0 mmol/L 21.0-32.0 [facility] Globulin (S) [Mass/Vol] 4.6 g/dL 2.2-4.2 [facility] Urea nitrogen/Creatinine [Mass ratio] 19.4 mg/mg 10-20 [facility] - Hematology and Cell countsOrdered By: Dr. Vogt on 12-09-2022 Erythrocyte distribution width (RBC) [Entitic vol] 43.7 fL 35.1-43.9 [facility] Erythrocyte distribution width (RBC) [Ratio] 13.1 % 11.6-14.6 [facility] Immature granulocytes/100 WBC (Bld) 0.200 % 0.0-0.9 [facility] Comment on above: IG% - Immature Granu locytes (promyelocytes, myelocytes and metamyelocytes) > 1% indicates that a LEFT SHIFT is Present. MCH (RBC) [Entitic mass] 29.7 pg 27.0-32.0 [facility] Nucleated RBC/100 WBC (Bld) [Ratio] 0 % 0-5 [facility] MCHC Auto (RBC) [Mass/Vol]Or dered By: Dr. Vogt on 12-09-2022 MCHC (RBC) [Mass/Vol] 32.5 g/dL 32-36 [facility] No Panel InformationOrdered By: Dr. Vogt on 12-09-2022 Estimated GFR (MDRD) Amer 76 mL/min >60 [facility] Comment on above: GFR Calc Estimated GFR (MDRD) Non-Af Amer 63 mL/min >60 [facility] Comment on above: Non- GFR Calc Vitamin D 25-Hydroxy 39.7 ng/mL [facility] Comment on above: Vitamin D 25(OH) Sta tus Range Deficiency <20 ng/mL (50nmol/L) Insufficiency 20 - 30 ng/mL (50 - 75 nmol/L) Sufficiency 30 - 100 ng/mL (75 - 250 nmol/L) Toxicity >100 ng/mL (>250 nmol/L) Platelets bldOrdered By: Dr. Vogt on 12-09-2022 Platelets (Bld) [#/Vol] 337 10*3/uL 150-450 [facility] Serum or plasma albumin tyrell urement (mass/volume)Ordered By: Dr. Vogt on 12-09-2022 Albumin [Mass/Vol] 3.6 g/dL 3.2-5.0 [facility] Serum or plasma albumin/glob ulin mass ratioOrdered By: Dr. Vogt on 12-09-2022 Albumin/Globulin [Mass ratio] 0.8 {ratio} 0.9-2.4 [facility] Serum or plasma calcium tyrell urement (mass/volume)Ordered By: Dr. Vogt on 12-09-2022 Calcium [Mass/Vol] 9.7 mg/dL 8.5-10.1 [facility] Serum or plasma cholesterol in HDL measurement (mass/volume)Ordered By: Dr. Vogt on 12-09-2022 Cholesterol in HDL [Mass/Vol] 50 mg/dL >40 [facility] Comment on above: The drugs N-Acetylcy steine and Metamizole may falsely depress this assay. Reference Range HDL <40 mg/dL Low HDL Cholesterol HDL >or= 60 mg/dL High HDL Cholesterol Serum or plasma cholesterol in VLDL measurement (mass/volume)Ordered By: Dr. Vogt on 12-09-2022 Cholesterol in VLDL [Mass/Vol] 26 mg/dL 5-40 [facility] Serum or plasma creatinine m easurement (mass/volume)Ordered By: Dr. Vogt on 12-09-2022 Creatinine [Mass/Vol] 0.93 mg/dL 0.55-1.02 [facility] Comment on above: The validity of the calculated GFR & GFRAA in patients over 70 years has not been determined. Clinical correlation is essential. Serum or plasma low density lipoprotein (LDL) cholesterol measurement (mass/volume)Ordered By: Dr. Vogt on 12-09-2022 Cholesterol in LDL [Mass/Vol] 149 mg/dL 0-130 [facility] Serum or plasma urea nitroge n measurement (mass/volume)Ordered By: Dr. Vogt on 12-09-2022 Urea nitrogen [Mass/Vol] 18 mg/dL 7-18 [facility] Thin prep Papanicolaou smear with manual screeningOrdered By: Dr. Vogt on 12-09-2022 Thin prep Papanicolaou smear with manual screening 21 U/L 15-37 [facility] Thin prep Papanicolaou smear with manual screening 5 5-15 [facility] Vital Signs Date Time Vital Sign Value Performing Clinician Adia noyola 01-22-2023 08:45-0400 Body height 157.[address] Sandi Vogt Work Phone: [facility] 01-22-2023 08:45-0400 Body mass index (BMI) [Ratio] 32 kg/m2 Dr. Sandi Vogt Work Phone: [facility] 01-22-2023 08:45-0400 Body weight 79.[address] Sandi Vogt Work Phone: [facility] 11-29-2022 13:03-0500 Body height 157.[address] Sandi Vogt Work Phone: [facility] 11-29-2022 13:03-0500 Body mass index (BMI) [Ratio] 31.8 kg/m2 Dr. Sandi Vogt Work Phone: [facility] 11-29-2022 13:03-0500 Body temperature 98.4 [degF] Dr. Sandi Vogt Work Phone: [facility] 11-29-2022 13:03-0500 Body weight 78.[address] Sandi Vogt Work Phone: [facility] 11-29-2022 13:03-0500 Diastolic blood pressure 84 mm[Hg] Dr. Sandi Vogt Work Phone: [facility] 11-29-2022 13:03-0500 Heart rate 92 /min Dr. Sandi Vogt Work Phone: [facility] 11-29-2022 13:03-0500 Respiratory rate 17 /min Dr. Sandi Vogt Work Phone: [facility] 11-29-2022 13:03-0500 SaO2% (BldA) [Mass fraction] 97 % Dr. Sandi Vogt Work Phone: [facility] 11-29-2022 13:03-0500 Systolic blood pressure 140 mm[Hg] Dr. Sandi Vogt Work Phone: [facility] 12-31-2021 09:59-0400 Body height 157.48 cm [facility] Work Phone: Encounters Encounter Date Encounter Type Care Provider Facility Start: 01-20-2025 End: 01-20-[address] Sandi Vogt DO Work Phone: [facility] Work Phone: Start: 01-20-2025 End: 01-20-[address] Sandi Vogt DO -Outpatient Breast Imaging Work Phone: Start: 01-20-2025 End: 01-20-2025 ambulatory Sandi Vogt Facility:[facility] Start: 12-13-2024 End: 12-13-[address] Sandi Vogt DO Work Phone: [facility] Work Phone: Start: 12-13-2024 End: 12-13-[address] Sandi Vogt DO -Radiology, [place] Work Phone: Start: 12-12-2024 End: 12-13-[address] Sandi Vogt DO Work Phone: [facility] Work Phone: Start: 12-12-2024 End: 12-12-[address] Sandi Vogt DO -[facility] Start: 12-12-2024 End: 12-12-2024 ambulatory Sandi Vogt Facility:[facility] Start: 10-14-2024 End: 10-14-[address] Sandi Vogt DO -Radiology, [facility] Work Phone: Start: 10-14-2024 End: 10-14-2024 ambulatory Sandi Vogt Facility:[facility] Start: 08-09-2024 ambulatory Sandi Vogt Facility:[facility] [place] Start: 08-09-2024 End: 08-09-2024 ambulatory [facility] Facility:[facility] Start: 07-19-2024 End: 07-19-2024 ambulatory [facility] Facility:[facility] Start: 01-23-2023 End: 01-23-[address] Sandi Vogt Work Phone: [facility] Work Phone: Start: 01-23-2023 End: 01-23-[address] Sandi Vogt Work Phone: [facility], [facility] Start: 01-22-2023 Non-patient / Non-visit Dr. Nichelle Vogt Work Phone: [facility] Start: 01-01-2023 End: 01-01-[address] Sandi Vogt Work Phone: [facility] Work Phone: Start: 01-01-2023 End: 01-01-[address] Sandi Vogt Work Phone: [facility]-Outpatient Breast Imaging Start: 12-09-2022 End: 12-09-[address] Sandi Vogt Work Phone: [facility] Work Phone: Start: 12-09-2022 End: 12-09-[address] [facility] Start: 11-29-2022 End: 11-29-[address] Sandi Vogt Work Phone: [facility] Start: 01-08-2022 End: 01-08-2022 Patient encounter procedure [facility]-Laboratory, Specimen Start: 12-31-2021 End: 12-31-2021 Patient encounter procedure [facility]-Outpatient Bone Densitometry Procedures Date Procedure Procedure Detail Performing Clinician Start: 01-20-2025 Screening mammography Dori Vogt DO Work Phone: Start: 12-13-2024 X-ray of knee, four or more views Dr. Sandi Vogt DO Work Phone: Start: 10-14-[address] Sandi Vogt DO Work Phone: Start: 01-23-[address] Sandi Vogt Work Phone: Start: 01-01-2023 Screening mammography Dori Vogt Work Phone: Start: 12-31-2021 Dual energy X-ray absorptiometry Start: 12-31-2021 Screening mammography Plan of Treatment Date Care Activity Detail Author Colonoscopy [facility] Payers Date Payer Category Payer Self-pay [id number] 2015 Unknown [id number] Unknown [id number] Unknown [id number] [id number] [id number] Unknown [id number] [id number] [id number] Unknown [id number] 2.16.8 [id number] Unknown [id number] 2.16.8 [id number] Unknown [id number] 2.16.8 [id number] Unknown [id number] 2.16.8 [id number] Unknown [id number] [id number] [id number] Social History Date Type Detail Facility Start: 10-06-2013 End: 01-22-2023 Tobacco smoking status NHIS Unknown if ever smoked [facility] Start: 03-19-[address] [facility] Start: 03-19-[address] [facility] Start: 03-19-2021 Non-smoker [facility] Start: 1950 Sex Assigned At Female [facility] Start: 03-11-2023 End: 03-11-2023 Tobacco smoking status NHIS Never smoked tobacco (finding) [facility] Start: 12-22-2024 End: 01-25-2025 Sex Female (finding) [facility] Radiology Diagnostic study note 12-13-2024 Note Date & Type Note Facility 12-13-2024 Radiology Diagnostic study note [facility] Imaging Services [address] [place] [id number] Knee 4 or More Views MR#: [id number] Acct: [id number] Name: ROLY ARCEO Rep #: [id number] : 1950 F 74 From: Keenan Khan MD PCP: Dr. Sandi Vogt DO Status: REG CLI Study:Knee 4 or More Views Date of Exam: 12/13/24 Exam# [id number] Ordering Dr: Nichelle Vogt sa, DO PROCEDURE: KNEE 4 OR MORE VIEWS REASON FOR EXAM: Knee pain. TECHNIQUE: 4 view(s) of the right knee COMPARISON: None. FINDINGS: No fracture. No suspicious bone lesion. Normal alignment. No effusion. Soft tissues are unremarkable. Moderate degree of joint space narrowing involving the medial compartment of theknee joint. RAD/Knee 4 or More Views IMPRESSION: DEGENERATIVE OSTEOARTHROSIS. NO ACUTE FINDINGS. Reading Location: [id number] CC: Dr. Sandi Vogt DO ~ Diagnostic Medical Sonographer: Signed [facility] Radiology Diagnostic study note 12-13-2024 Note Date & Type Note Facility 12-13-2024 Radiology Diagnostic study note [facility] Imaging Services [address] [place], [place] [address] Knee 4 or More Views MR#: [id number] Acct: [id number] Name: ROLY ARCEO Rep #: [id number] : 1950 F 74 From: Keenan Khan MD PCP: Dr. Sandi Vogt DO Status: REG CLI Study:Knee 4 or More Views Date of Exam: 12/13/24 Exam# [id number] Ordering Dr: Nichelle Vogt sa, DO PROCEDURE: KNEE 4 OR MORE VIEWS REASON FOR EXAM: Bilateral knee pain. TECHNIQUE: 4 view(s) of the left knee COMPARISON: None. FINDINGS: Marked degree of joint space narrowing involving the medial compartment of the knee joint with degenerative spur formation of the distal medial femoral condyle. Mild joint space narrowing at the patellofemoraljoint. No fracture. No suspicious bone lesion. Normal alignment. No effusion. Soft tissues are unremarkable. RAD/Knee 4 or More Views IMPRESSION: Marked degree of joint space narrowing involving the medial compartment of the knee joint with degenerative spur formation of the distal medial femoral condyle. Reading Location: [id number] CC: Dr. Sandi Vogt DO ~ Diagnostic Medical Sonographer: Signed [facility] Evaluation note Note Date & Type Note Facility Evaluation note No assessment information availa ble [facility] Work Phone: Evaluation note Note Date & Type Note Facility Evaluation note Diagnosis Onset Date Gastroenteritis acute [facility] Work Phone: Reason for referral (narrative) Note Date & Type Note Facility Reason for referral (narrative) No reason for referral information available [facility] Work Phone: Chief Complaint and Reason for Visit Chief Complaint SCREENING FOR OSTEOP ENIA Chief Complaint DIZZY, HEADACHE, RUN [place] NOSE,CHILLS Reason for Visit Gastroenteritis Chief Complaint DIZZY, HEADACHE, RUN [place] NOSE,CHILLS SCREENING Reason for Visit Gastroenteritis Chief Complaint DIZZY, HEADACHE, RUN [place] NOSE,CHILLS SCREENING Amb Documentation RUQ PAIN, EPIGASTRUM Reason for Visit Gastroenteritis Chief Complaint Admit Date PAIN IN KNEES December 13, 2024 8:29am Chief Complaint Admit Date PAIN IN KNEES December 13, 2024 8:29am SCREENING January 20, 2025 7:38 am Advance Directives No Advanced Directives Records Found Advance Directive Response Recorded Date/ Time Living Will No October 06 1:43pm Power of Commercial Loan Collection Officer No October 06, 2013 1:43pm Advance Directive Response Recorded Date/ Time Living Will No October 06 12:43pm Power of Commercial Loan Collection Officer No October 06, 2013 12:43pm Family History No Family History Records Found Relationship Condition Age at Onset Recorded Date/T waylon Not Specified Diabetes mellitus Unknown Cardiac disease Unknown Relationship Condition Age at Onset Recorded Date/T waylon Not Specified Cardiac disease Unknown mother Diabetes mellitus Unknown Summary Purpose Additional Source Comments Goals (unrecognized section and content) Goals may be documented in a n alternate sectionGoals may be documented in an alternate sectionGoals may be documented in an alternate sectionGoals may be documented in an alternate sectionGoals may be documented in an alternate sectionGoals may be documented in an alternate sectionGoals may be documented in an alternate section Care Teams (unrecognized sec tion and content) Team Status: Active Member Role Status Dates Dr. Sandi Vogt DO Family Provider Active Dr. Sandi Vogt DO Primary Care Provider Active Team Status: Inactive Member Role Status Dates Dr. Sandi Vogt DO Primary Care Provider, Referring P rovider Active Mikey CERON, PA Attending Provider Active Team Status: Inactive Member Role Status Dates Dr. Sandi Vogt DO Primary Care Provide r, Attending Provider, Referring Provider Active Team Status: Inactive Member Role Status Dates Dr. Sandi Vogt DO Primary Care Provider, Attending P rovider Active Team Status: Active Member Role Status Dates Dr. Sandi Vogt DO Primary Care Provider Active Sunita Parker Attending Provider Active Team Status: Inactive Member Role Status Dates Dr. Sandi Vogt DO Primary Care Provider Active Dr. Christiano Burnett DO Attending Provider, Referring P rovider Active Team Status: Inactive Member Role Status Dates Dr. Sandi Vogt DO Primary Care Provider Active Start: October 14, 2024 End: October 14, 2024 Dr. Sandi Vogt DO Attending Provider Active St art: October 14, 2024 End: October 14, 2024 Dr. Sandi Vogt DO Referring Provider Active St art: October 14, 2024 End: October 14, 2024 Team Status: Inactive Member Role Status Dates Dr. Sandi Vogt DO Primary Care Provider Active Start: December 12, 2024 End: December 12, 2024 Dr. Sandi Vogt DO Attending Provider Active St art: December 12, 2024 End: December 12, 2024 Team Status: Active Member Role Status Dates Dr. Sandi Vogt DO Primary Care Provider Active Start: December 13, 2024 Dr. Sandi Vogt DO Attending Provider Active St art: December 13, 2024 Dr. Sandi Vogt DO Referring Provider Active St art: December 13, 2024 Team Status: Inactive Member Role Status Dates Dr. Sandi Vogt DO Primary Care Provider Active Start: December 13, 2024 End: December 13, 2024 Dr. Sandi Vogt DO Attending Provider Active St art: December 13, 2024 End: December 13, 2024 Dr. Sandi Vogt DO Referring Provider Active St art: December 13, 2024 End: December 13, 2024 Team Status: Active Member Role Status Dates Dr. Sandi Vogt DO Primary Care Provider Active Team Status: Inactive Member Role Status Dates Dr. Sandi Vogt DO Primary Care Provider Active Start: January 20, 2025 End: January 20, 2025 Dr. Sandi Vogt DO Attending Provider Active St art: January 20, 2025 End: January 20, 2025 Dr. Sandi Vogt DO Referring Provider Active St art: January 20, 2025 End: January 20, 2025 INFORMATION SOURCE (unrecogn ized section and content) DATE CREATED AUTHOR 01/27/2025 [facility] FOR RECORDS PERTAINING TO PATIENTS WHO ARE OR HAVE BEEN ENROLLED IN A CHEMICAL DEPENDENCY/SUBSTANCEABUSE PROGRAM, SOME INFORMATION MAY BE OMITTED. This clinical summary was aggregated from multiple sources. Caution should be exercised in using it in the provision of clinical care. This summary normalizes information from multiple sources, and as a consequence, information in this document may materially change the coding, format and clinical context of patient data. In addition, data may be omitted in some cases. CLINICAL DECISIONS SHOULD BE BASED ON THE PRIMARY CLINICAL RECORDS. [employer] provides no warranty or guarantee of the accuracy or completeness of information in this document.
== END | disposition home or self-care (01) ==
PROVIDERS: PCP Family Medicine; Referring Provider Nurse Practitioner Family; Visit Provider Nurse Practitioner Family
DX: M54.41 Lumbago with sciatica, right side (principal)
CPT/HCPCS: 72110; 73521

== ENCOUNTER 2025-07-10 07:37 | Emergency (ER) | payer MEDICARE, SELFPAY ==
[2025-07-10 07:38] VITALS: BP 179/108; PULSE 105; RESP 16; TEMP 36.2; O2SAT 97
[2025-07-10] MEDS: Lidocaine 5% Patch 1 PATCH TOPICAL (08:37)
[2025-07-10 08:43] VITALS: BMI 35.4
--- NOTE | 2025-07-10 08:49 | EDS_ITS ---
HPI History of Present Illness Chief Complaint: Back Narrative Narrative: Chief complaint and HPI: 74-year-old female with past medical history of HTN, arthritis presents for evaluation of right sided lumbar back pain that radiates into the right buttocks/leg. Patient states for the past month she has been having right sided lumbar back pain with radiculopathy. She has followed with her PCP who has performed x-rays outpatient. She states that she is also followed with acupuncture. Patient states she was recently placed on gabapentin and prednisone taper by PCP for her pain. She is yet to be referred to an orthopedic physician. Patient states she has not had any significant improvement in her pain despite these therapies. Denies numbness, urinary retention, stool or urinary incontinence, saddle anesthesia, recent invasive manipulation of the spine, fever. Review of systems: See HPI Medications: As listed on the chart Allergies: As listed on the chart PFSH: Per chart Vital signs: As listed on the chart. Reviewed. Physical exam: Gen: A&O x3, NAD Head: Normocephalic, atraumatic Eyes: No sclera icterus, conjunctiva clear ENT: Moist mucous membranes Neck: Full range of motion, nontender CV: RRR, no murmurs, no peripheral edema Resp: Lungs CTA BL, no w/r/c GI: Abd soft, non-distended, non-tender, no r/r/g Musc: Antalgic gait on the right secondary to her pain, no midline spinal tenderness, no bony step-offs, no cellulitis/crepitus/ecchymosis/trauma, patient has tenderness to palpation of the bilateral paraspinal musculature of the lower lumbar spine-worse on the right compared to the left-muscles tense, tenderness to palpation of the right gluteal muscle, strength+5/5 in all extremities, DP/PT pulses +2 bilaterally, compartments soft, sensation intact, + straight leg test on the right, no saddle paresthesias Skin: Warm, dry Neuro: Alert, oriented, grossly intact, sensation intact Psych: Cooperative, appropriate mood and affect [facility] Medical History Wears glasses Anxiety Arthritis Migraine headache Gastric reflux Non-smoker Leg cramps History of echocardiogram History of stress test Hemorrhoids Hypertension Home Medications ?Medication ?Instructions ?Recorded ?Last Taken ?Type lisinopril 10 1 tab PO DAILY 01/22/23 Unkn own History mg-hydrochlorothiazide 12.5 mg tablet Hydrocortisone 2.5%/lidocaine 5% #30 ea 03/11/23 Unkno wn Rx suppository (cmpd) (hydrocortisone 2.5%/lidocaine 5% suppository (compound)) Allergy/AdvReac Type Severity Reaction Status Date / Time cefdinir Allergy Rash Verified 07/10/25 07:40 cephalexin Allergy Rash Verified 07/10/25 07:40 codeine Allergy Other Verified 07/10/25 07:40 Penicillins Allergy Other Verified 07/10/25 07:40 tramadol Allergy Nausea Verified 07/10/25 07:40 Family History (Updated 01/22/23 @ 08:34 by Sunita Parker) Mother Diabetes Other Heart disease Surgical History Hx of bilateral cataract extraction Hx of right knee surgery Hx of tubal ligation History of cardiac radiofrequency ablation Social History (Updated 01/22/23 @ 08:34 by Sunita Parker) current occupational status: retired Smoking Status: Never smoker EXAM Physical Exam Const Vital Signs: 07/10/25 07:38 Temperature 97.2 F L Temperature Source Temporal Pulse Rate 105 H Respiratory Rate 16 Blood Pressure 179/108 H Blood Pressure Mean 131 Pulse Ox 97 Oxygen Delivery Method Room Air MDM MDM MDM Narrative Medical decision making narrative: 74-year-old female with past medical history of HTN, arthritis presents for evaluation of right sided lumbar back pain that radiates into the right buttocks/leg. Patient states for the past month she has been having right sided lumbar back pain with radiculopathy. She has followed with her PCP who has performed x-rays outpatient. She states that she is also followed with acupuncture. Patient states she was recently placed on gabapentin and prednisone taper by PCP for her pain. She is yet to be referred to an orthopedic physician. Patient states she has not had any significant improvement in her pain despite these therapies however she is still taking the medication. On chart review, patient had an x-ray of the lumbar spine spine performed on 07/03/2025. Mild spondylosis of the lumbar spine. Degenerative disc disease involving the disc spaces. Osteoarthritic changes of the SI joints. She also had an x-ray of the hip and pelvis performed that showed diffuse osteopenia of the bony pelvis and both hips. Moderate degenerative osteoarthritic changes. No fractures or dislocations. Osteoarthritic changes of the SI joints and pubic symphysis. There has been no trauma or new trauma. There is nothing to suggest any infectious etiology. Exam is not consistent with acute cauda equina syndrome. Therefore at this point I do not feel any emergent MRI is warranted or additional x-rays. Patient symptoms will be treated with lidocaine patch, Valium, Toradol. Differential diagnosis includes but is not limited to myofascial spasm, osteoarthritis, degenerative disc disease, sciatica. On reevaluation, patient's pain has improved. Patient is stable to discharge home. Will send her home with a prescription for lidocaine patch and muscle relaxers. She was given education on muscle relaxers. She is to continue her prednisone taper and gabapentin. Follow-up with PCP and refer her to orthopedic spine. She confirmed understand the plan. Patient able to discharge home. Return precautions explained. Impression: 1. Lumbar back pain 2. Left sciatica Discharge Plan Triage Chief Complaint: Back ED Provider: Stewart Blankenship Dx/Rx/DC Orders Prescriptions: No Action lisinopril-hydrochlorothiazide 10-12.5 mg tablet 1 tab PO DAILY (DME) hydrocortisone 2.5%/lidocaine 5% suppository (compound) Suppository See Rx Instructions .Route Qty: 30 2RF Rx Instructions: per rectum BID Primary Care Provider: Sandi Vogt Referrals: Sandi Vogt DO [Primary Care Provider, Family Practice] Print Language: Wallisian
[2025-07-10 10:03] VITALS: BP 183/100; PULSE 75; RESP 18; TEMP 36.6; O2SAT 97
--- NOTE | 2025-07-10 10:05 | ED.RN ---
dr tyler notified of bp at discharge of 183/100. pt verbalized that she has not been taking her bp medication and that she was going to start taking again and would be following up with her pcp. denies alfonso or symptoms. dr coates aware.
== END 2025-07-10 10:07 | disposition home or self-care (01) ==
PROVIDERS: Emergency Provider Surgery; PCP Family Medicine; Visit Provider Surgery
DX: M54.42 Lumbago with sciatica, left side (principal); M47.816 Spondylosis without myelopathy or radiculopathy, lumbar region; M85.89 Other specified disorders of bone density and structure, multiple sites; I10 Essential (primary) hypertension; Z98.51 Tubal ligation status
CPT/HCPCS: 96372; 99282

== ENCOUNTER → 2025-09-19 | Outpatient (CLI) | payer MEDICARE, SELFPAY ==
--- NOTE | 2025-09-19 09:05 | EKG12_ITS ---
Test Reason : PREOP Blood Pressure : */* mmHG Vent. Rate : 88 BPM Atrial Rate : 88 BPM P-R Int : 160 ms QRS Dur : 70 ms QT Int : 356 ms P-R-T Axes : 56 6 56 degrees QTcB Int : 430 ms Normal sinus rhythm Inferior infarct , age undetermined Abnormal ECG Confirmed by Sukhdeep Lang ([id number]), image editor MARIETTA SHELL ([id number]) on 09/20/2025 5:50:55 AM Referred By: Edgardo Forbes Confirmed By: Sukhdeep Lang
--- NOTE | 2025-09-19 09:17 | CT_ITS ---
PROCEDURE: EXTREMITY LOWER WITHOUT CONTRA 09/19/2025 REASON FOR EXAM: OSTEOARTHRITIS RIGHT KNEE TECHNIQUE: Procedure Code: CTELWO Modality: CT Procedure: EXTREMITY LOWER WITHOUT CONTRA Coronal and Sagittal reconstruction series were provided, right knee. CONTRAST: None One or more dose reduction techniques were used (e.g., Automated exposure control, adjustment of the mA and/or kV according to patient size, use of iterative reconstruction technique). RADIATION DOSE SUMMARY: DLP: 1324 mGycm COMPARISON: None FINDINGS: There is moderate to severe tricompartment osteoarthritis, most severe in the medial compartment. There is subcortical cyst formation, joint space narrowing, with marginal osteophytes. There is no visible loose body. There is no significant joint effusion. There is no visible soft tissue mass or cyst. Mineralization is normal. There is no visible atherosclerosis. CT/Extremity Lower without Contra IMPRESSION: There is moderate to severe tricompartment osteoarthritis, most severe in the m edial compartment. Reading Location: [facility]
[2025-09-19 10:08] LABS: Hematocrit 39.2 % (37-47); Hemoglobin 13.1 g/dL (12.0-15.0); Mean Corp Hgb Conc 33.4 g/dL (32-36); Mean Corpuscular Volume 90.5 fL (81-99); Mean Platelet Vol. 9.6 fl (6.2-12.0); Platelet Count 413 K/mm3 (150-450); RBC Distribution Width CV 12.8 % (11.6-14.6); RBC Distribution Width SD 42.7 fl (35.1-43.9); Red Blood Count 4.33 M/mm3 (4.2-5.4); White Blood Count 7.6 K/mm3 (4.4-11.0)
[2025-09-19 10:33] LABS: Albumin, Serum 4.0 g/dL (3.4-4.8); Anion Gap 11 (5-15); BUN 16 mg/dL (4-19); BUN/Creat Ratio 20.1 RATIO (10-20); Calcium,Total 9.5 mg/dL (7.6-11.0); Carbon Dioxide 27.6 mmol/L (21.0-32.0); Chloride 103 mmol/L (98-108); Glucose 120 mg/dL (70-99); Potassium 4.1 mmol/L (3.3-5.1)
== END | disposition home or self-care (01) ==
PROVIDERS: PCP Family Medicine; Referring Provider Orthopaedic Surgery; Visit Provider Orthopaedic Surgery
DX: Z01.818 Encounter for other preprocedural examination (principal); I10 Essential (primary) hypertension; Z79.899 Other long term (current) drug therapy; M16.11 Unilateral primary osteoarthritis, right hip
CPT/HCPCS: 36415; 73700; 80048; 82040; 85027; 93005

== ENCOUNTER → 2025-09-22 | Outpatient (CLI) | payer MEDICARE, SELFPAY | END | disposition home or self-care (01) | LOC: LAB 09:44 | PROVIDERS: PCP Family Medicine; Referring Provider Orthopaedic Surgery; Visit Provider Orthopaedic Surgery | DX: Z01.818 Encounter for other preprocedural examination (principal) | CPT/HCPCS: 36415; 83036 ==